=== PATIENT | female | born 1980 | race Caucasian/White ===

== ENCOUNTER 2018-06-21 19:08 | Emergency (ER) | payer MEDICARE ==
[2018-06-21] MEDS ORDERED: Zofran 4 MG/2 ML VIAL (20:03)
[2018-06-21] MEDS ORDERED: Pepcid 20 MG VIAL IV (20:03)
[2018-06-21] MEDS ORDERED: Sodium Chloride 0.9% 1000 ML 1,000 ML (20:04)
[2018-06-21] MEDS ORDERED: MORPHINE SULFATE 4 MG INJ (20:04)
[2018-06-21] MEDS: Sodium Chloride 0.9% 1000 ML 1,000 ML IV ×2 (20:11→20:50)
[2018-06-21] MEDS: Pepcid 20 MG VIAL IV ×2 (20:12→20:50)
[2018-06-21] MEDS: Zofran 4 MG/2 ML VIAL IV ×2 (20:12→20:50)
[2018-06-21 20:14] LABS: BASOPHIL % 0.5 % (0.0-0.4); Basophil (Absolute #) 0.05 (0-0.4); Eosinophil % 4.7 % (0.00-5.0); Eosinophil (Absolute #) 0.44 (0-0.5); Granulocytes % 51.4 % (36.0-66.0); Hematocrit 43.9 % (35-47); Hemoglobin 14.1 gm/dl (12.0-16.0); Lymphocyte (Absolute #) 3.43 (1.0-4.6); Lymphocytes % 36.6 % (24.0-44.0); Mean Cell Volume 86.4 fl (78-100); Mean Corpuscular Hemoglobin 27.8 pg (26-32); Mean Corpuscular Hgb Concent. 32.1 g/dl (32-36); Mean Platelet Volume 9.5 fl (6-9.5); Monocyte (Absolute #) 0.64 (0.0-1.3); Monocytes % 6.8 % (0.0-12.0); Platelet Count 237 K/mm3 (150-450); Red Blood Count 5.08 M/mm3 (4.1-5.4); Red Cell Distribution Width 15.9 % (11.5-14.0); White Blood Count 9.4 K/mm3 (4.0-10.5)
[2018-06-21] MEDS: MORPHINE SULFATE 4 MG INJ IV (20:17)
[2018-06-21] MEDS ORDERED: TORAdol 30 mg Injection (20:18)
[2018-06-21 20:19] LABS: ADD MANUAL DIFF? NO (NO)
[2018-06-21 20:33] LABS: Lactic Acid 1.3 (0.4-2.0)
[2018-06-21 20:37] LABS: HCG QUALITATIVE,SERUM NEGATIVE (Negative)
[2018-06-21] MEDS ORDERED: Nubain 10 MG/ML (20:37)
[2018-06-21 20:44] LABS: ALBUMIN 4.5 g/dL (3.5-5.0); ALKALINE PHOSPHATASE 62 U/L (38-126); AMYLASE 42 U/L (30-110); ANION GAP 15.3 MEQ/L (5-15); BLOOD UREA NITROGEN 10 mg/dL (7-17); CHLORIDE 108 mmol/L (98-107); Calcium 9.4 mg/dL (8.4-10.2); Carbon Dioxide 20 mmol/L (22-30); Creatinine 1 0.95 mg/dL (0.52-1.04); EST GLOMERULAR FILTRATION RATE > 60.0 ML/MIN; Glucose 93 mg/dL (74-106); LIPASE 146 U/L (23-300); Potassium 4.1 mmol/L (3.5-5.1); SGOT/AST 24 U/L (14-36); SGPT/ALT 15 U/L (0-35); SODIUM 140 mmol/L (137-145); Total Protein 6.9 g/dL (6.3-8.2)
[2018-06-21] MEDS: Nubain 10 MG/ML IV (20:49)
[2018-06-21] MEDS: TORAdol 30 mg Injection IV (21:03)
[2018-06-21 21:49] LABS: Appearance SLIGHTLY CLOUDY (CLEAR); Bacteria RARE /HPF (NEGATIVE); Bilirubin NEGATIVE (NEGATIVE); Blood LARGE Ery/ul (0-5); Epithelial Cells FEW /HPF (FEW); Glucose NEGATIVE (NEGATIVE); Ketones NEGATIVE (NEGATIVE); Leukocyte Esterase TRACE (NEGATIVE); Mucus SLIGHT /HPF (NEGATIVE); Nitrite NEGATIVE (NEGATIVE); Protein,Urine Dip NEGATIVE (Negative); Specific Gravity 1.017 (1.005-1.025); Urobilinogen NEGATIVE mg/dL (0-1)
[2018-06-21 21:50] LABS: ADD URINE CULTURE? YES (NO); RBC >101 /HPF (0-2)
[2018-06-21] MEDS ORDERED: ROCEPHIN 1 Gm-D5w 50 ml Bag** 1 G/50 ML IVPB IV (22:22)
[2018-06-21] MEDS: ROCEPHIN 1 Gm-D5w 50 ml Bag** 1 G/50 ML IVPB IV (22:27)
== END 2018-06-21 23:09 | disposition home or self-care (01) ==
LOC: ED 19:08
CPT/HCPCS: 36000; 36415; 74176; 80053; 81001; 81025; 82150; 83605; 83690; 85025; 87086; 96374; 96375; J0696; J1885; J2270; J2300; J2405

== ENCOUNTER 2019-09-28 11:56 | Day surgery (SDC) | payer MEDICARE ==
--- NOTE | 2019-09-28 07:56 | HP ---
DATE OF SURGERY: 09/28/2019 HISTORY OF PRESENT ILLNESS: The patient is a 39 year-old with increased aches and pains, prior history of hernia repair by Dr. Mata in the past. She had a bulge in mid-abdomen, according to the patient. Ultrasound was negative for any stones. Picking up 40 pounds. She had incarcerated in the fat ventral hernia on a CT scan in the summer apparently. PAST MEDICAL HISTORY: She had incarcerated epigastric hernia repair with mesh by Dr. Mata in the past. She had some diabetes, hypothyroidism, anxiety, depression and reflux. PAST SURGICAL HISTORY: Laparoscopic appendectomy in the past. MEDICATIONS: She has been on dicyclomine, esomeprazole, metoclopramide, Tradjenta, vitamin D2, cetirizine, levothyroxine for some hypothyroidism, Alprazolam, escitalopram. ALLERGIES: MORPHINE. FAMILY HISTORY: Negative in regards to this problem. SOCIAL HISTORY: No alcohol abuse. She is not smoking currently. REVIEW OF SYSTEMS: Fourteen systems reviewed per admission assessment. No chest pain or palpitations. Otherwise pertinent for as noted above. PHYSICAL EXAMINATION: GENERAL: No acute distress. HEENT: Sclerae nonicteric. NECK: No JVD. CHEST: Equal excursion, nonlabored breathing. CVS: Regular rate and rhythm. ABDOMEN: Soft. Difficult to examine secondary to obesity. The CT scan showed some fat in ventral hernia likely recurrence around her prior repair. No peritoneal signs. EXTREMITIES: No edema. NEURO: Alert, oriented, moving extremities symmetrically. IMPRESSION: Incarcerated recurrent ventral hernia likely benefit from repair. Discussed options of laparoscopic versus open repair. I feel with her weight likely benefit from laparoscopic assisted repair possible open with mesh. Risks and benefits explained in detail not limited to bleeding or infection, risk of trocar injury or hernia, small risk of bowel, bladder, blood vessel injury, small risk of adhesion, scar formation or obstruction. 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 General risk of anesthesia, deep venous thrombosis, pulmonary embolism, pneumonia but not limited to.
[~2019-09-28 11:56] MED LIST: Lactated Ringers 1,000 ML IV ONE; Sensorcaine 0.25% 10 ML ONE
[2019-09-28] MEDS ORDERED: Versed 2 MG/2 ML Injection ONE (12:26)
[2019-09-28] MEDS ORDERED: CEFAZOLIN 2 GM-D5W BAG** 2 GM/50 ML ML IV ONE (12:30)
[2019-09-28] MEDS ORDERED: Lactated Ringers 1,000 ML IV ONE (12:31)
[2019-09-28] MEDS ORDERED: CLINDAMYCIN-D5W 900 MG/50 ML*** 900 MG/50 ML BAG IV ONE (12:44)
[2019-09-28] MEDS: Lactated Ringers 1,000 ML IV SCH (12:46)
[2019-09-28] MEDS: CLINDAMYCIN-D5W 900 MG/50 ML*** 900 MG/50 ML BAG IV SCH (12:49)
[2019-09-28] MEDS ORDERED: DIPRIVAN 200 MG/20 ML IV ONE (14:08)
[2019-09-28] MEDS ORDERED: Zemuron 100 MG/10 ML ONE (14:09)
[2019-09-28] MEDS ORDERED: SUBLIMAZE 250 MCG/5 ML ONE (14:09)
[2019-09-28] MEDS ORDERED: BRIDION 200MG/2ML IV ONE (14:10)
[2019-09-28] MEDS ORDERED: Marcaine 0.5%/Epinephrine 10 ML ONE (17:23)
[2019-09-28] MEDS ORDERED: MARCAINE 0.5%-EPI 1:200,000 VL IJ ONE (17:23)
[2019-09-28] MEDS ORDERED: TORAdol 30 mg Injection ONE (18:15)
[2019-09-28] MEDS ORDERED: DEMEROL 50 MG ONE (18:31)
[2019-09-28 19:12] VITALS: O2SAT 96
[2019-09-28 19:38] VITALS: BP 116/59; PULSE 81
[2019-09-28 20:12] LABS: Appearance CLOUDY (CLEAR); Bacteria RARE /HPF (NEGATIVE); Bilirubin NEGATIVE (NEGATIVE); Blood NEGATIVE Ery/ul (0-5); Epithelial Cells MODERATE /HPF (FEW); Glucose NEGATIVE (NEGATIVE); Ketones NEGATIVE (NEGATIVE); Leukocyte Esterase NEGATIVE (NEGATIVE); Mucus MODERATE /HPF (NEGATIVE); Nitrite NEGATIVE (NEGATIVE); Protein,Urine Dip 30 (Negative); Specific Gravity 1.023 (1.005-1.025); Urobilinogen NEGATIVE mg/dL (0-1)
--- NOTE | 2019-09-29 11:55 | OP ---
SURGERY DATE/TIME: 09/28/2019 1540 PREOPERATIVE DIAGNOSIS: Incarcerated recurrent ventral hernia. POSTOPERATIVE DIAGNOSIS: Two separate recurrent incarcerated ventral hernias repaired laparoscopically with two separate pieces of mesh. PROCEDURES: 1) Laparoscopic repair incarcerated ventral hernia x2. 2) Two separate pieces of mesh repairing separate locations. SURGEON: Dr. Joshua Silver. APPLIANCE SERVICER: Laquita Coronado, Medical Student III. ANESTHESIA: General. ESTIMATED BLOOD LOSS: Minimal. INDICATIONS: As noted above. Risks and benefits explained in detail and not limited to and consent obtained. DESCRIPTION OF PROCEDURE AND FINDINGS: The patient is taken to the operating room. General anesthesia induced. Abdomen is prepped and draped in usual sterile fashion. After official time out and no disagreement with planned procedure, a transverse incision made below the umbilical area. Fascia grasped upward. Given her obesity unable to easily pull up the fascia. It was necessary to slightly enlarge the incision. Fascia grasped with Anaid and pulled upwards. Veress needle inserted and tested with saline. Pneumoperitoneum accomplished opening pressure 0 to 15. A 5 mm bladeless port and camera inserted without difficulty in the left upper quadrant along with a 5 mm right mid abdomen port, another 5 mm left mid abdomen port and another 5 mm left lower quadrant port. The patient had extensive omentum from prior repair, this was carefully taken down. The main hernia that she was complaining about was inferior to her old mesh that is still well incorporated. The fat incarcerated in the omentum and preperitoneal fat, this is carefully reduced down allowing the hernia defect to be visualized superiorly. When the omentum had been taken down off the top edges of the mesh, there was another area that was definitely separate site of recurrence, this was much smaller. It was felt that this would benefit from repair with a separate smaller piece of mesh well away from her symptomatic one inferiorly. The right side of the mesh it is a little bit bowed out. It was felt that this should be secured with some 3-0 Ethibond, carefully placed through a stab wound and securing it transfascially reflattening the mesh overlapping where some omentum had been incarcerated up underneath. At this point two separate areas of mesh felt they needed to be repaired independently. It was felt she would have much severe pain if her old mesh is ripped out and a huge piece of mesh placed. It was felt given the size of the defect, size [address] is most appropriate for the caudal area repairing hernia and a separate 4.3 cm smaller defect superiorly as the remainder of the old mesh was well incorporated. Transfascial sutures placed with some 0 Vicryl in the superior defect through stab wound. Inferior small transverse incision made with two - #1 PDS placed transfascially to bring her fascial defect back towards the midline where it belongs. Before tying these, the 11/12 port was placed allowing the two pieces of mesh to be carefully inserted. The first piece of mesh size [address], four quadrant straps had been cut four quadrant 0 Ethibond transfascial sutures carefully placed in four quadrants with 0 Vicryl placed in the middle of the mesh. The smaller 4.3 cm Ventralex the straps cut off. 0 Vicryl placed in the center portion of the mesh. At this point the mesh was carefully wet and gently rolled and easily dropped down through the 12 port. At this point both superior separate hernia defects closed with #1 Vicryl closing the fascial defect back towards the midline where it belongs. The inferior one was closed with #1 PDS. Once these fascial defects brought back to the midline, suture passer then used to pull the center 0 Vicryl mesh up to the center of the defect. The four quadrant 0 Ethibonds were carefully pulled up through four separate stab wounds. The larger more caudal mesh over the caudal area of hernia, this is carefully secured transfascially four quadrants with a CapSure tacker then used to tack 1 cm or so around the edges. The same CapSure tacker was used to carefully tack the more cephalad 4.3 cm piece of mesh separate hernia carefully tacking in flat manner 1 cm apart. Once this is accomplished the CapSure tacker used to place centrally to further reduce the risk of seromal formation keeping the mesh nice and flat. The two pieces of mesh are nice and flat. The edge of the old mesh had been tacked with SorbaFix tacker as well. The mesh laid nice and flat with good overlap in all directions. It was felt this was the best option to minimize risk of recurrence as well as minimize risk of chronic aches and pains perioperatively. At this point pneumoperitoneum decompressed. The skin incisions are closed with the large one where the 12 port had been closed with 3-0 Vicryl and 4-0 Vicryl, the remainder of skin incision closed with 4-0 Vicryl. The stab wounds were closed with Steri-Strips. 0.25% Marcaine local had been injected along the skin incision. Anesthesia proceeded with tap blocks at the end of the procedure. Steri-Strips and sterile dressing applied. She was given an abdominal binder. She will be transferred to recovery in stable condition. There were no immediate complications. Findings discussed with the family out in the waiting area including the importance of termite treater helper weight loss deeply reduces recurrence. Avoid heavy lifting for six to eight weeks. Avoid pushing, pulling, straining, heavy lifting.
== END 2019-09-28 19:41 | disposition home or self-care (01) ==
LOC: SDC 11:56
PROVIDERS: ATTEND Surgery
DX: K43.0 Incisional hernia with obstruction, without gangrene (principal); E11.9 Type 2 diabetes mellitus without complications; E03.9 Hypothyroidism, unspecified; Z79.899 Other long term (current) drug therapy
CPT/HCPCS: 49653; 64488; 76937; 76942; 81001; 82962; 84703; 87086; C1781; J0690; J1885; J2175; J2250; J2704; J3010; L0625

== ENCOUNTER 2023-02-08 00:14 | Emergency (ER) | payer MEDICARE ==
[2023-02-08] MEDS ORDERED: TORAdol 30 mg Injection IV ONE (00:20)
[2023-02-08] MEDS ORDERED: TORAdol 30 mg Injection ONE (00:34)
[2023-02-08 00:36] LABS: Absolute Neutrophil Ct (ANC) 4.39 x10^3/uL (1.4-6.9); BASOPHIL % 0.7 % (0.0-0.4); Basophil (Absolute #) 0.06 x10^3/uL (0-0.4); Eosinophil % 4.7 % (0.00-5.0); Eosinophil (Absolute #) 0.42 x10^3/uL (0-0.5); Hematocrit 39.8 % (35-47); Hemoglobin 12.2 g/dL (12.0-16.0); IMMATURE GRAN # 0.02 x10^3u/L (0.00-0.03); IMMATURE GRAN % 0.2 % (0.00-0.4); Lymphocyte (Absolute #) 3.36 x10^3/uL (1.0-4.6); Lymphocytes % 37.6 % (24.0-44.0); Mean Corpuscular Hemoglobin 29.1 pg (26-32); Mean Corpuscular Hgb Concent. 30.7 g/dL (32-36); Mean Platelet Volume 9.7 fL (7.5-11.0); Monocyte (Absolute #) 0.68 x10^3/uL (0.0-1.3); Monocytes % 7.6 % (0.0-12.0); Neutrophil % 49.2 % (36.0-66.0); Platelet Count 221 x10^3/uL (150-450); Red Blood Count 4.19 x10^6/uL (4.1-5.4); Red Cell Distribution Width 14.2 % (11.5-14.0); White Blood Count 8.9 x10^3/uL (4.0-10.5)
[2023-02-08 00:49] LABS: ALBUMIN 3.8 g/dL (3.5-5.0); ALKALINE PHOSPHATASE 61 U/L (38-126); ANION GAP 10.5 MEQ/L (5-15); BLOOD UREA NITROGEN 14 mg/dL (7-17); CHLORIDE 106 mmol/L (98-107); Carbon Dioxide 26 mmol/L (22-30); Creatinine 1 0.89 mg/dL (0.52-1.04); EST GLOMERULAR FILTRATION RATE > 60.0 ML/MIN; Glucose 98 mg/dL (74-106); LIPASE 97 U/L (23-300); Potassium 3.7 mmol/L (3.5-5.1); SGOT/AST 26 U/L (14-36); SGPT/ALT 19 U/L (0-35); SODIUM 139 mmol/L (137-145); Total Protein 6.5 g/dL (6.3-8.2)
[2023-02-08 00:50] LABS: Appearance Clear (Clear); Bacteria None Seen /HPF (None Seen); Bilirubin Negative (Negative); Blood Negative (Negative); Epithelial Cells Rare /HPF (None Seen); Glucose, Urine Negative (Negative); Hyaline Casts NONE SEEN /LPF (0-2); Ketones Negative (Negative); Leukocyte Esterase Small (Negative); Nitrite Negative (Negative); Protein,Urine Dip Negative (Negative); RBC 0-2 /HPF (0-5)
[2023-02-08 00:52] LABS: ADD URINE CULTURE? NO (NO)
--- NOTE | 2023-02-08 01:52 | XRAY ---
CLINICAL HISTORY:Left upper abdominal pain; COMPARISON:07/15/2019; TECHNIQUES:CT scan of the abdomen and pelvis was performed without IV contrast. Coronal and sagittal reconstructive images were also obtained; FINDINGS: Abdomen:. The liver is of average size. No focal or diffuse parenchymal abnormality. The portal vein, intrahepatic biliary radicals and the bile ducts are normal. The spleen shows stable 3 mm rounded calcified granuloma. The pancreas and adrenal glands are unremarkable. The kidneys are unremarkable. They are normal in size and shape. No calculi or hydronephrosis. The gallbladder is partially distended. There is no evidence of wall thickening/ pericholecystic collection. The ascending colon, the transverse colon, and the descending colon visualized small bowel loops are unremarkable. There is no evidence of significant enlargement of the mesenteric or retroperitoneal lymph nodes. There is a hernia mesh at the umbilical level without recurrent hernia. Pelvis:. The urinary bladder is unremarkable. The rectosigmoid colon is unremarkable. The uterus is surgically removed in comparison to the previous study. No evidence of pelvic lymphadenopathy. No definite bony abnormalities could be depicted. Sections of the lower thorax show a 5 mm stable calcified granuloma in the posterior basal segment of the left lower lobe. IMPRESSION: No significant acute abnormality was detected in the plain CT abdomen in the present study. Umbilical hernia mesh. Stable old calcified granuloma in the spleen and left lower lobe of the lung. No significant interval changes were seen as compared to the previous study dated 07/15/2019 except for hysterectomy and hernia mesh. Electronically Signed by: Juan Pablo Hutchinson MD. (02/08/2023 00:37:32 ASSISTANT AT SURGERY;)
--- NOTE | 2023-02-08 02:40 | ERPHSYRPT ---
- History of Present Illness Time Seen by Provider: 02/08/23 00:20 Historian: patient Exam Limitations: no limitations Patient Subjective Stated Complaint: pt states her belly began to hurt an hour after eating Triage Nursing Assessment: pt came into the er via; pt is axo x3; c/o abd pain; pt denies N/V/D; pt states last BM was just prior to coming in; active bowel sounds in all quads; tenderness present to LUQ; skin PDW; vitasl wnl; no respira tory distress present Physician History: Patient is a 42-year-old female presents to our ED with left upper quadrant pain that started after eating her meal. Patient arrived to our ED via EMS. Pain described as an ache that is localized. No radiation. No specific worsening improving factors. Patient denies history of the same. No trauma. No fever. No nausea vomiting or diarrhea. Patient otherwise feels well. Patient voices no other complaints or concerns at this time. Portions of this note were created with voice recognition technology. There may be grammatical, spelling, punctuation or sound alike errors Timing/Duration: today Activities at Onset: none Abdominal Pain Onset Location: LUQ Pain Radiation: no radiation Severity of Pain-Max: moderate Severity of Pain-Current: mild Modifying Factors: Improves With: nothing Associated Symptoms: denies symptoms Previous symptoms: no prior history Allergies/Adverse Reactions: penicillin G Allergy (Mild, Verified 02/08/23 00:22) Itching morphine Adverse Reaction (Mild, Verified 02/08/23 00:22) Itching Home Medications: Esomeprazole Magnesium [Nexium] 40 mg PO DAILY 07/06/14 [History] Levothyroxine Sodium 75 Mcg [Synthroid 75 Mcg] 200 mcg PO DAILY 07/06/14 [History] ALPRAZolam 0.25 MG [xanAX 0.25 MG] 0.25 mg PO BIDPRN PRN 09/16/19 [History] Cetirizine HCl [Zyrtec] 10 mg PO DAILY 09/16/19 [History] Dicyclomine HCl 10 mg PO TID 09/16/19 [History] Ergocalciferol (Vitamin D2) [Vitamin D2] 50,000 unit PO Q7D 09/16/19 [History] Escitalopram Oxalate [Lexapro] 10 mg PO DAILY 09/16/19 [History] Linagliptin [Tradjenta] 5 mg PO DAILY 09/16/19 [History] Metoclopramide HCl [Reglan] 10 mg PO ACHS 09/16/19 [History] Hx Tetanus, Diphtheria Vaccination/Date Given: Yes Hx Influenza Vaccination/Date Given: No Hx Pneumococcal Vaccination/Date Given: No Travel Risk - International Travel Have you traveled outside of the country in past 3 weeks: No - Coronavirus Screening Are you exhibiting any of the following symptoms?: No Close contact with a COVID-19 positive Pt in past 14-21 Days: No - Vaccine Status Have you recieved a Covid-19 vaccination: No - Review of Systems Constitutional: No Symptoms, No Fever, No Chills Eyes: No Symptoms Ears, Nose, & Throat: No Symptoms Respiratory: No Symptoms, No Cough, No Dyspnea Cardiac: No Symptoms, No Chest Pain, No Edema, No Syncope Abdominal/Gastrointestinal: No Symptoms, No Abdominal Pain, No Nausea, No Vomiting, No Diarrhea Genitourinary Symptoms: No Symptoms, No Dysuria Musculoskeletal: No Symptoms, No Back Pain, No Neck Pain Skin: No Symptoms, No Rash Neurological: No Symptoms, No Dizziness, No Focal Weakness, No Sensory Changes Psychological: No Symptoms Endocrine: No Symptoms Hematologic/Lymphatic: No Symptoms Immunological/Allergic: No Symptoms All Other Systems: Reviewed and Negative - Past Medical History Pertinent Past Medical History: Yes Neurological History: No Pertinent History ENT History: No Pertinent History Cardiac History: No Pertinent History Respiratory History: No Pertinent History Endocrine Medical History: Diabetes Type II, Hypothyroidism Musculoskeletal History: No Pertinent History GI Medical History: GERD, Hernia History: No Pertinent History Psycho-Social History: No Pertinent History Female Reproductive Disorders: No Pertinent History Other Medical History: 2009 blood clots in lungs, no longer on blood thinners - Past Surgical History Past Surgical History: Yes Neuro Surgical History: No Pertinent History Cardiac: No Pertinent History Respiratory: No Pertinent History Gastrointestinal: Cholecystectomy, Hernia Repair Genitourinary: No Pertinent History Musculoskeletal: No Pertinent History Female Surgical History: Section, Tubal Ligation, Other Other Surgical History: breast biopsy apr 2014 - Social History Smoking Status: Never smoker Exposure to second hand smoke: No Drug Use: none Patient Lives Alone: No Significant Family History: no pertinent family hx - Female History Hx Now: No - Nursing Vital Signs Nursing Vital Signs: Initial Vital Signs Temperature 98.6 F 02/08/23 00:16 Pulse Rate 83 02/08/23 00:16 Respiratory Rate 14 02/08/23 00:16 Blood Pressure 135/87 02/08/23 00:16 O2 Sat by Pulse Oximetry 99 02/08/23 00:16 Pain Scale Pain Intensity 3 - Physical Exam General Appearance: no apparent distress, alert Eye Exam: PERRL/EOMI, eyes nml inspection Ears, Nose, Throat Exam: normal ENT inspection, pharynx normal, moist mucous membranes Neck Exam: normal inspection, non-tender, supple, full range of motion Respiratory Exam: normal breath sounds, lungs clear, airway intact, No respiratory distress Cardiovascular Exam: regular rate/rhythm, normal heart sounds, normal peripheral pulses Gastrointestinal/Abdomen Exam: soft, No tenderness, No mass Pelvic Exam: not done Rectal Exam: deferred Back Exam: normal inspection, normal range of motion, No CVA tenderness, No vertebral tenderness Extremity Exam: normal inspection, normal range of motion, pelvis stable Neurologic Exam: alert, oriented x 3, cooperative, normal mood/affect, nml cerebellar function, sensation nml, No motor deficits Skin Exam: normal color, warm, dry Lymphatic Exam: No adenopathy SpO2 Interpretation: normal SpO2: 100 O2 Delivery: Room Air - Course Nursing assessment & vital signs reviewed: Yes - CT Exams Abdomen/Pelvis CT Interpretation: Tele-radiologist Report Ordered Tests: Active Orders 24 hr Category Date Time Status ABDOMEN AND PELVIS W/0 CONTRAS [CT] Stat Exams 02/08/23 00:40 Completed CBC W DIFF Stat Lab 02/08/23 00:34 Completed CMP Stat Lab 02/08/23 00:34 Completed LIPASE Stat Lab 02/08/23 00:34 Completed TROPONIN Q4H Lab 02/08/23 00:34 Completed TROPONIN Q4H Lab 02/08/23 04:30 Ordered TROPONIN Q4H Lab 02/08/23 08:30 Ordered UA W/RFX UR CULTURE Stat Lab 02/08/23 00:38 Completed Medication Summary Discontinued Medications Generic Name Dose Route Start Last Admin Trade Name Freq PRN Reason Stop Dose Admin Ketorolac Tromethamine 30 mg 02/08/23 00:20 02/08/23 00:35 Ketorolac Tromethamine 30 Mg/Ml Inj IV 02/08/23 00:21 30 mg STAT ONE Administration Ketorolac Tromethamine Confirm 02/08/23 00:34 Ketorolac Tromethamine 30 Mg/Ml Inj Administered 02/08/23 00:35 Dose 30 mg .ROUTE .STK-MED ONE Lab/Rad Data: Laboratory Result Diagrams 02/08/23 00:34 02/08/23 00:34 Laboratory Results 02/08/23 02/08/23 02/08/23 Range/Units 00:38 00:34 00:34 WBC (4.0-10.5) x10^3/uL RBC (4.1-5.4) x10^6/uL Hgb (12.0-16.0) g/dL Hct (35-47) % MCV (78-100) fL MCH (26-32) pg MCHC (32-36) g/dL RDW (11.5-14.0) % Plt Count (150-450) x10^3/uL MPV (7.5-11.0) fL Gran % (36.0-66.0) % Immature Gran % (Auto) (0.00-0.4) % Nucleat RBC Rel Count (0.00-0.1) % Eos # (Auto) (0-0.5) x10^3/uL Immature Gran # (Auto) (0.00-0.03) x10^3u/L Absolute Lymphs (auto) (1.0-4.6) x10^3/uL Absolute Monos (auto) (0.0-1.3) x10^3/uL Absolute Nucleated RBC (0.00-0.01) x10^3u/L Lymphocytes % (24.0-44.0) % Monocytes % (0.0-12.0) % Eosinophils % (0.00-5.0) % Basophils % (0.0-0.4) % Absolute Granulocytes (1.4-6.9) x10^3/uL Basophils # (0-0.4) x10^3/uL Sodium 139 (137-145) mmol/L Potassium 3.7 (3.5-5.1) mmol/L Chloride 106 (98-107) mmol/L Carbon Dioxide 26 (22-30) mmol/L Anion Gap 10.5 (5-15) MEQ/L BUN 14 (7-17) mg/dL Creatinine 0.89 (0.52-1.04) mg/dL Estimated GFR > 60.0 ML/MIN Glucose 98 (74-106) mg/dL Calcium 8.0 L (8.4-10.2) mg/dL Total Bilirubin 0.30 (0.2-1.3) mg/dL AST 26 (14-36) U/L ALT 19 (0-35) U/L Alkaline Phosphatase 61 (38-126) U/L Troponin I < 0.012 (0.000-0.034) ng/mL Serum Total Protein 6.5 (6.3-8.2) g/dL Albumin 3.8 (3.5-5.0) g/dL Lipase 97 (23-300) U/L Urine Color Yellow (Yellow) Urine Appearance Clear (Clear) Urine pH 7.0 (4.6-8.0) Ur Specific [place] 1.020 (1.005-1.030) Urine Protein Negative (Negative) Urine Glucose (UA) Negative (Negative) mg/dL Urine Ketones Negative (Negative) Urine Blood Negative (Negative) Urine Nitrite Negative (Negative) Urine Bilirubin Negative (Negative) Urine Urobilinogen 1.0 A (0.2) mg/dL Ur Leukocyte Esterase Small A (Negative) U Hyaline Cast (Auto) NONE SEEN (0-2) /LPF Urine Microscopic RBC 0-2 (0-5) /HPF Urine Microscopic WBC 6-10 A (0-5) /HPF Ur Epithelial Cells Rare (None Seen) /HPF Urine Bacteria None Seen (None Seen) /HPF Urine Culture Reflexed NO (NO) 02/08/23 Range/Units 00:34 WBC 8.9 (4.0-10.5) x10^3/uL RBC 4.19 (4.1-5.4) x10^6/uL Hgb 12.2 (12.0-16.0) g/dL Hct 39.8 (35-47) % MCV 95.0 (78-100) fL MCH 29.1 (26-32) pg MCHC 30.7 L (32-36) g/dL RDW 14.2 H (11.5-14.0) % Plt Count 221 (150-450) x10^3/uL MPV 9.7 (7.5-11.0) fL Gran % 49.2 (36.0-66.0) % Immature Gran % (Auto) 0.2 (0.00-0.4) % Nucleat RBC Rel Count 0.0 (0.00-0.1) % Eos # (Auto) 0.42 (0-0.5) x10^3/uL Immature Gran # (Auto) 0.02 (0.00-0.03) x10^3u/L Absolute Lymphs (auto) 3.36 (1.0-4.6) x10^3/uL Absolute Monos (auto) 0.68 (0.0-1.3) x10^3/uL Absolute Nucleated RBC 0.00 (0.00-0.01) x10^3u/L Lymphocytes % 37.6 (24.0-44.0) % Monocytes % 7.6 (0.0-12.0) % Eosinophils % 4.7 (0.00-5.0) % Basophils % 0.7 (0.0-0.4) % Absolute Granulocytes 4.39 (1.4-6.9) x10^3/uL Basophils # 0.06 (0-0.4) x10^3/uL Sodium (137-145) mmol/L Potassium (3.5-5.1) mmol/L Chloride (98-107) mmol/L Carbon Dioxide (22-30) mmol/L Anion Gap (5-15) MEQ/L BUN (7-17) mg/dL Creatinine (0.52-1.04) mg/dL Estimated GFR ML/MIN Glucose (74-106) mg/dL Calcium (8.4-10.2) mg/dL Total Bilirubin (0.2-1.3) mg/dL AST (14-36) U/L ALT (0-35) U/L Alkaline Phosphatase (38-126) U/L Troponin I (0.000-0.034) ng/mL Serum Total Protein (6.3-8.2) g/dL Albumin (3.5-5.0) g/dL Lipase (23-300) U/L Urine Color (Yellow) Urine Appearance (Clear) Urine pH (4.6-8.0) Ur Specific [place] (1.005-1.030) Urine Protein (Negative) Urine Glucose (UA) (Negative) mg/dL Urine Ketones (Negative) Urine Blood (Negative) Urine Nitrite (Negative) Urine Bilirubin (Negative) Urine Urobilinogen (0.2) mg/dL Ur Leukocyte Esterase (Negative) U Hyaline Cast (Auto) (0-2) /LPF Urine Microscopic RBC (0-5) /HPF Urine Microscopic WBC (0-5) /HPF Ur Epithelial Cells (None Seen) /HPF Urine Bacteria (None Seen) /HPF Urine Culture Reflexed (NO) - Progress Progress: improved Progress Note: Patient is a 42-year-old female presents to our ED via EMS for evaluation of abdominal pain. Pain started approximate 1 hour after her evening meal. Physical exam essentially nonremarkable. Testing includes CBC CMP lipase troponin UA. UA reveals urinary tract infection with leukocyte esterase and pyuria. Laboratory studies otherwise essentially nonremarkable. Patient r eceived Toradol for pain control. Pain improved. Patient voices no other complaints or concerns at this time. Portions of this note were created with voice recognition technology. There may be grammatical, spelling, punctuation or sound alike errors Complexity of problem addressed is moderate. No critical care time Complex of data reviewed and analyzed is moderate. Test ordered test reviewed and analyzed. Clinical correlation made between physical exam findings and laboratory and imaging studies. Risk complication and or risk morbidity/mortality of patient management is moderate. Patient received IV Toradol for pain management. Patient has a urinary tract infection. A prescription for Macrobid will be forwarded to patient's pharmacy. Time to discharge patient approximately 15 minutes. Vital stable. Plan of care established via shared decision making. No social determinants of health impede follow-up. Portions of this note were created with voice recognition technology. There may be grammatical, spelling, punctuation or sound alike errors 02/08/23 02:43 Counseled pt/family regarding: lab results, diagnosis, need for follow-up, rad results - Departure Departure Disposition: Home Clinical Impression: Spleen granuloma, Lung granuloma Condition: Stable Critical Care Time: No Referrals: NASIR REECE [Primary Care Provider] - Follow up/PCP as directed Additional Instructions: Discharge/Care Plan BLAISE MATOS TED was seen on 02/08/23 in the Emergency Room. The patient was counseled regarding Diagnosis,Lab results, Imaging studies, need for follow up and when to return to the Emergency Room. Prescriptions given: Discharge Note I have spoken with the patient and/or caregivers. I have explained the patient's condition, diagnosis and treatment plan based on the information available to me at this time. I have answered the patient's and/or caregiver's questions and addressed any concerns. The patient and/or caregivers have as good understanding of the patient's diagnosis, condition and treatment plan as can be expected at this point. The vital signs have been stable. The patient's condition is stable and appropriate for discharge from the emergency department. The patient will pursue further outpatient evaluation with the primary care physician or other designated or consulting physician as outlined in the discharge instructions. The patient and/or caregivers are agreeable to this plan of care and follow-up instructions have been explained in detail. The patient and/or caregivers have received these instruction. The patient/and or caregivers are aware that any significant change in condition or worsening of symptoms shou ld prompt an immediate return to this or the closest emergency department or call 911. Prescriptions: Nitrofurantoin Macro 100 mg [Macrobid 100MG Capsule] 100 mg PO BID 7 Days #14 cap
[2023-02-08 02:58] VITALS: BP 117/79; PULSE 78; O2SAT 99
== END 2023-02-08 02:59 | disposition home or self-care (01) ==
LOC: ED 00:14
DX: J84.10 Pulmonary fibrosis, unspecified (principal); D73.89 Other diseases of spleen; R10.12 Left upper quadrant pain; E11.9 Type 2 diabetes mellitus without complications; Z79.899 Other long term (current) drug therapy; Z28.310 Unvaccinated for COVID-19
CPT/HCPCS: 36415; 74176; 80053; 81001; 83690; 84484; 85025; 96374; 99283; J1885

== ENCOUNTER 2023-09-29 23:00 | Emergency (ER) | payer MEDICARE ==
[2023-09-30 00:20] VITALS: TEMP 98.3
--- NOTE | 2023-09-30 01:03 | ERPHSYRPT ---
- History of Present Illness Time Seen by Provider: 09/30/23 00:30 Source: patient Patient Subjective Stated Complaint: medial left ankle and foot pain since rolling ankle on bleachers 09/28/23 at 1900 Triage Nursing Assessment: Pt's left pedal pulse and posterior tibial pulse present and WNL. Skin color WNL for race. ROM limited d/t pain. Denies numbness or tingling. Physician History: 43yo f presents w/ 1d left ankle pain. Pt states she stepped off of bleachers onto the ground and pronated the left ankle. Pt states she was initially able to walk on the ankle but now is having Allergies/Adverse Reactions: penicillin G Allergy (Mild, Verified 09/30/23 00:08) Itching morphine Adverse Reaction (Mild, Verified 09/30/23 00:08) Itching Home Medications: Esomeprazole Magnesium [Nexium] 40 mg PO DAILY 07/06/14 [History] Levothyroxine Sodium 75 Mcg [Synthroid 75 Mcg] 200 mcg PO DAILY 07/06/14 [History] ALPRAZolam 0.25 MG [xanAX 0.25 MG] 0.25 mg PO BIDPRN PRN 09/16/19 [ History] Cetirizine HCl [Zyrtec] 10 mg PO DAILY 09/16/19 [History] Dicyclomine HCl 10 mg PO TID 09/16/19 [History] Ergocalciferol (Vitamin D2) [Vitamin D2] 50,000 unit PO Q7D 09/16/19 [History] Escitalopram Oxalate [Lexapro] 10 mg PO DAILY 09/16/19 [History] Linagliptin [Tradjenta] 5 mg PO DAILY 09/16/19 [History] Metoclopramide HCl [Reglan] 10 mg PO ACHS 09/16/19 [History] Hx Tetanus, Diphtheria Vaccination/Date Given: Yes Hx Influenza Vaccination/Date Given: No Hx Pneumococcal Vaccination/Date Given: No Travel Risk - International Travel Have you traveled outside of the country in past 3 weeks: No - Coronavirus Screening Are you exhibiting any of the following symptoms?: No Close contact with a COVID-19 positive Pt in past 14-21 Days: No - Vaccine Status Have you recieved a Covid-19 vaccination: No - Past Medical History Pertinent Past Medical History: Yes Neurological History: No Pertinent History ENT History: No Pertinent History Cardiac History: No Pertinent History Respiratory History: Pulmonary Embolism Endocrine Medical History: Diabetes Type II, Hypothyroidism Musculoskeletal History: No Pertinent History GI Medical History: GERD, Hernia History: No Pertinent History Psycho-Social History: No Pertinent History Female Reproductive Disorders: No Pertinent History Other Medical History: . - Past Surgical History Past Surgical History: Yes Neuro Surgical History: No Pertinent History Cardiac: No Pertinent History Respiratory: No Pertinent History Gastrointestinal: Cholecystectomy, Hernia Repair Genitourinary: No Pertinent History Musculoskeletal: No Pertinent History Female Surgical History: Hysterectomy, Section, Tubal Ligation, Other Other Surgical History: breast biopsy apr 2014 - Social History Smoking Status: Never smoker Exposure to second hand smoke: No Drug Use: none Patient Lives Alone: No Significant Family History: no pertinent family hx - Female History Hx Now: No - Nursing Vital Signs Nursing Vital Signs: Initial Vital Signs Temperature 98.3 F 09/30/23 00:14 Pulse Rate 77 09/30/23 00:14 Respiratory Rate 16 09/30/23 00:14 Blood Pressure 117/82 09/30/23 00:14 O2 Sat by Pulse Oximetry 96 09/30/23 00:14 Pain Scale Pain Intensity 7 - Physical Exam General Appearance: no apparent distress Cardiovascular/Respiratory Exam: chest non-tender, normal breath sounds Ankle Exam: left ankle: limited range of motion (2/2 pain), pain, soft tissue tenderness, swelling Foot Exam: left foot: pain, soft tissue tenderness Mental Status Exam: alert, oriented x 3 SpO2 Interpretation: normal SpO2: 96 O2 Delivery: Room Air Ordered Tests: Active Orders 24 hr Category Date Time Status ANKLE (3 VIEWS) Stat Exams 09/30/23 00:30 Taken FOOT (MINIMUM 3 VIEWS) Stat Exams 09/30/23 00:30 Taken Medication Summary Discontinued Medications Generic Name Dose Route Start Last Admin Trade Name Freq PRN Reason Stop Dose Admin Ketorolac Tromethamine 30 mg 09/30/23 00:55 09/30/23 01:35 Ketorolac Tromethamine 30 Mg/Ml Inj IM 09/30/23 00:56 30 mg STAT ONE Administration Ketorolac Tromethamine Confirm 09/30/23 01:34 Ketorolac Tromethamine 30 Mg/Ml Inj Administered 09/30/23 01:35 Dose 30 mg .ROUTE .STK-MED ONE - Progress Progress: improved Progress Note: 09/30/23 02:30 pain improved significantly w/ toradol injection imaging of foot and ankle negative for acute fracture plan for dc home w/ jona wrap on ankle, given crutches for ambulation instructed to present to orthopedic walk in clinic in the AM can use tylenol for pain, ice and elevation for relief of swelling movement of the ankle as tolerated Counseled pt/family regarding: diagnosis, need for follow-up, rad results Medical Desision Making - Risk of complications Minimal Risk: Minimal risk of morbidity - Departure Departure Disposition: Home Clinical Impression: Left ankle sprain Qualifiers: Encounter type: initial encounter Involved ligament of ankle: unspecified ligament Qualified Code(s): S93.402A - Sprain of unspecified ligament of left ankle, initial encounter Condition: Stable Critical Care Time: No Referrals: NASIR REECE [Primary Care Provider] - Follow up/PCP as directed Additional Instructions: pain improved significantly w/ toradol injection imaging of foot and ankle negative for acute fracture plan for dc home w/ jona wrap on ankle, given crutches for ambulation instructed to present to orthopedic walk in clinic in the AM can use tylenol for pain, ice and elevation for relief of swelling movement of the ankle as tolerated
[2023-09-30] MEDS ORDERED: TORAdol 30 mg Injection ONE (01:34)
[2023-09-30] MEDS: TORAdol 30 mg Injection IM ONE (01:35)
[2023-09-30 01:53] VITALS: BP 128/82; PULSE 74; RESP 18
[2023-09-30 02:37] VITALS: O2SAT 96
--- NOTE | 2023-09-30 08:43 | XRAY ---
Indication: Pain following injury. Comparison: None 3 view left ankle demonstrates tiny plantar heel spur. No other bony, articular, or soft tissue abnormalities.
--- NOTE | 2023-09-30 08:45 | XRAY ---
Indication: Pain following injury. Comparison: None 3 nonweightbearing views left foot demonstrates tiny plantar heel spur. No other bony, articular, or soft tissue abnormalities.
== END 2023-09-30 03:17 | disposition home or self-care (01) ==
LOC: ED 23:00
DX: S93.402A Sprain of unspecified ligament of left ankle, initial encounter (principal); X50.0XXA Overexertion from strenuous movement or load, initial encounter; E11.9 Type 2 diabetes mellitus without complications; Z79.84 Long term (current) use of oral hypoglycemic drugs; Z79.899 Other long term (current) drug therapy; Z28.310 Unvaccinated for COVID-19
CPT/HCPCS: 73610; 73630; 96372; 99283; J1885

== ENCOUNTER 2024-01-12 21:56 | Emergency (ER) | payer MEDICARE ==
[2024-01-12 23:59] VITALS: TEMP 98.2
[2024-01-13 00:19] LABS: Absolute Neutrophil Ct (ANC) 3.46 x10^3/uL (1.56-6.13); BASOPHIL % 0.9 % (0.1-1.2); Basophil (Absolute #) 0.07 x10^3/uL (0.01-0.08); Eosinophil % 1.7 % (0.7-5.8); Eosinophil (Absolute #) 0.13 x10^3/uL (0.04-0.36); Hematocrit 41.7 % (34.1-44.9); Hemoglobin 13.4 g/dL (11.2-15.7); IMMATURE GRAN # 0.02 x10^3u/L (0.001-0.031); IMMATURE GRAN % 0.3 % (0.001-0.429); Mean Cell Volume 92.7 fL (79.4-94.8); Mean Corpuscular Hemoglobin 29.8 pg (25.6-32.2); Mean Corpuscular Hgb Concent. 32.1 g/dL (32.2-35.5); Mean Platelet Volume 10.3 fL (9.4-12.3); Monocyte (Absolute #) 0.54 x10^3/uL (0.24-0.86); Monocytes % 6.9 % (4.7-12.5); Neutrophil % 44.2 % (34.0-71.1); Platelet Count 203 x10^3/uL (182-369); Red Cell Distribution Width 14.8 % (11.7-14.4); White Blood Count 7.8 x10^3/uL (3.98-10.04)
[2024-01-13 01:02] LABS: ALBUMIN 4.7 g/dL (3.5-5.0); ANION GAP 11.7 MEQ/L (5-15); BILIRUBIN,TOTAL 0.7 mg/dL (0.2-1.3); Calcium 9.3 mg/dL (8.4-10.2); Creatinine 1 1.17 mg/dL (0.52-1.04); EST GLOMERULAR FILTRATION RATE 59.4 ML/MIN; Potassium 3.4 mmol/L (3.5-5.1); Total Protein 7.4 g/dL (6.3-8.2)
[2024-01-13] MEDS: Sodium Chloride 0.9% 1000 ML 1,000 ML IV STA (01:04)
[2024-01-13] MEDS ORDERED: Sodium Chloride 0.9% 1000 ML 1,000 ML ONE (01:04)
[2024-01-13] MEDS: MORPHINE SULFATE 2 MG INJ IV ONE (01:05)
[2024-01-13] MEDS: ROCEPHIN 1 GM / 100 ML NaCl 1 GM/100 ML IVPB IV ONE (01:11)
[2024-01-13 01:24] LABS: Appearance Clear (Clear); Bacteria None Seen /HPF (None Seen); Bilirubin Negative (Negative); Blood Negative (Negative); Epithelial Cells Rare /HPF (None Seen); Glucose, Urine Negative (Negative); Hyaline Casts NONE SEEN /LPF (0-2); Ketones Negative (Negative); Leukocyte Esterase Negative (Negative); Nitrite Negative (Negative); Ph 6.5 (4.6-8.0); Protein,Urine Dip Negative (Negative); RBC 0-2 /HPF (0-5); Specific Gravity 1.015 (1.005-1.030); Urobilinogen 0.2 mg/dL (0.2); WBC 0-2 /HPF (0-5)
[2024-01-13 01:32] LABS: ADD URINE CULTURE? NO (NO)
[2024-01-13 01:42] LABS: TSH, 3RD Generation 152.86 mIU/L (0.470-4.680)
[2024-01-13 01:50] LABS: INFLUENZA A NEGATIVE (NEGATIVE); INFLUENZA B NEGATIVE (NEGATIVE); RESPIRATORY SYNCTIAL VIRUS NEGATIVE (NEGATIVE); SARS-CoV-2 Xpert Express NEGATIVE (NEGATIVE)
--- NOTE | 2024-01-13 02:21 | ERPHSYRPT ---
- History of Present Illness Time Seen by Provider: 01/13/24 00:16 Source: patient Exam Limitations: no limitations Patient Subjective Stated Complaint: C/O not feeling well since around 2pm today. Patient with nonspecific symptoms. at bedside and states that patient fell asleep at their daughter's birthday libertarian today; not normal for patient. Denies pain or fever. Has some nausea but no vomiting or diarrhea. Triage Nursing Assessment: Patient ambulated back to ER without difficulties. She is alert and oriented. No SOB. Skin tone normal. NITHYA COLLAZO. Physician History: 43yo f presents for fatigue x 1 day. Pt states she started feeling fatigued while at a birthday libertarian earlier today, states her face looked flush and she reported she "wasnt feeling great." Pt was worried her blood sugar was low so she decided to eat some cake, BG was 160 on arrival. Pt denies any fevers, cough, sinus congestion, recent sick contacts, dysuria, hematuria, n/v/d. Pt does report some decreased PO intake today, states she feels dehydrated. Pt denies any recent falls or trauma. Timing/Duration: today Severity: mild Associated Symptoms: No nausea, No vomiting, No abdominal pain, No shortness of breath, No diaphoresis, No cough, No chills, No chest pain, No fever, No headaches Allergies/Adverse Reactions: penicillin G Allergy (Mild, Verified 01/12/24 23:51) Itching morphine Adverse Reaction (Mild, Verified 01/12/24 23:51) Itching Home Medications: Esomeprazole Magnesium [Nexium] 40 mg PO DAILY 07/06/14 [History] Levothyroxine Sodium 75 Mcg [Synthroid 75 Mcg] 200 mcg PO DAILY 07/06/14 [History] ALPRAZolam 0.25 MG [xanAX 0.25 MG] 0.25 mg PO BIDPRN PRN 09/16/19 [ History] Cetirizine HCl [Zyrtec] 10 mg PO DAILY 09/16/19 [History] Dicyclomine HCl 10 mg PO TID 09/16/19 [History] Ergocalciferol (Vitamin D2) [Vitamin D2] 50,000 unit PO Q7D 09/16/19 [History] Escitalopram Oxalate [Lexapro] 10 mg PO DAILY 09/16/19 [History] Linagliptin [Tradjenta] 5 mg PO DAILY 09/16/19 [History] Metoclopramide HCl [Reglan] 10 mg PO ACHS 09/16/19 [History] Hx Tetanus, Diphtheria Vaccination/Date Given: Yes Hx Influenza Vaccination/Date Given: Yes Hx Pneumococcal Vaccination/Date Given: No Immunizations Up to Date: Yes Travel Risk - International Travel Have you traveled outside of the country in past 3 weeks: No - Emerging Infectious Disease Are you exhibiting symptoms associated with any current EIDs: No - Review of Systems Constitutional: Fatigue, No Fever, No Chills Respiratory: No No Symptoms Cardiac: No No Symptoms Abdominal/Gastrointestinal: No No Symptoms Genitourinary Symptoms: No No Symptoms Musculoskeletal: No No Symptoms Neurological: No No Symptoms - Past Medical History Pertinent Past Medical History: Yes Neurological History: No Pertinent History ENT History: No Pertinent History Cardiac History: No Pertinent History Respiratory History: No Pertinent History Endocrine Medical History: Diabetes Type II, Hypothyroidism Musculoskeletal History: Other GI Medical History: GERD, Gallbladder Disease, Hernia History: No Pertinent History Psycho-Social History: No Pertinent History Female Reproductive Disorders: No Pertinent History Other Medical History: HX RIGHT KNEE ARTHROSCOPY AFTER A FALL "YEARS AGO" TO "CLEAN IT OUT" - Past Surgical History Past Surgical History: Yes Neuro Surgical History: No Pertinent History Cardiac: No Pertinent History Respiratory: No Pertinent History Gastrointestinal: Cholecystectomy, Hernia Repair Genitourinary: No Pertinent History Musculoskeletal: No Pertinent History Female Surgical History: Hysterectomy, Section, Tubal Ligation, Other Other Surgical History: breast biopsy apr 2014, right knee scope Significant Family History: no pertinent family hx - Female History Hx Last Menstrual Period: None Hx Now: No (tubal and hysterectomy) - Social History Smoking Status: Never smoker Exposure to second hand smoke: No Drug Use: none Patient Lives Alone: No - Social Determinants of Health Will the patient participate in the screening: Yes Do you worry about a steady place to live?: No Do you have any problems with any of the following?: No known problems In the past 12 months,have you had to go without utilities?: No Transportation Issues: No Has anyone in your support network made you feel unsafe?: No Have you or anyone in your house had to go without enough: No - Nursing Vital Signs Nursing Vital Signs: Initial Vital Signs Pulse Rate 82 01/12/24 23:49 Respiratory Rate 19 01/12/24 23:49 Blood Pressure 140/103 01/12/24 23:49 O2 Sat by Pulse Oximetry 98 01/12/24 23:49 Pain Scale Pain Intensity 0 - Physical Exam General Appearance: no apparent distress, alert Eye Exam: PERRL/EOMI Neck Exam: normal inspection, non-tender Respiratory Exam: normal breath sounds, lungs clear, airway intact, No chest tenderness, No respiratory distress Cardiovascular Exam: regular rate/rhythm, normal heart sounds, No edema Gastrointestinal/Abdomen Exam: soft, No tenderness, No distention Extremity Exam: normal inspection Neurologic Exam: alert, oriented x 3, cooperative, director [employer]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-XII nml as tested, normal mood/affect, No motor deficits, No sensory deficit Skin Exam: normal color, warm, dry SpO2 Interpretation: normal SpO2: 99 O2 Delivery: Room Air Ordered Tests: Active Orders 24 hr Category Date Time Status POCT GLUCOSE Stat Lab 01/12/24 22:33 Completed UA W/RFX UR CULTURE Stat Lab 01/13/24 01:11 Completed Medication Summary Discontinued Medications Generic Name Dose Route Start Last Admin Trade Name Freq PRN Reason Stop Dose Admin Ceftriaxone Sodium 1 gm in 100 mls @ 200 mls/hr 01/13/24 00:51 01/13/24 01:11 Rocephin 1 Gm / 100 Ml Nacl IV 01/13/24 01:20 Not Given STAT ONE Sodium Chloride 1,000 mls @ 999 mls/hr 01/13/24 00:58 01/13/24 02:05 Sodium Chloride 0.9% 1000 Ml IV 01/13/24 01:58 Infused .Q1H1M STA Infusion Sodium Chloride Confirm 01/13/24 01:04 Sodium Chloride 0.9% 1000 Ml Administered 01/13/24 01:05 Dose 1,000 mls @ ud .ROUTE .STK-MED ONE Morphine Sulfate 2 mg 01/13/24 00:51 01/13/24 01:05 Morphine Sulfate 2 Mg/Ml Inj IV 01/13/24 00:52 Not Given STAT ONE Lab/Rad Data: Laboratory Result Diagrams 01/12/24 00:16 01/12/24 00:16 Laboratory Results 01/13/24 01/13/24 01/12/24 Range/Units 01:11 01:11 22:33 WBC (3.98-10.04) x10^3/uL RBC (3.93-5.22) x10^6/uL Hgb (11.2-15.7) g/dL Hct (34.1-44.9) % MCV (79.4-94.8) fL MCH (25.6-32.2) pg MCHC (32.2-35.5) g/dL RDW (11.7-14.4) % Plt Count (182-369) x10^3/uL MPV (9.4-12.3) fL Gran % (34.0-71.1) % Immature Gran % (Auto) (0.001-0.429) % Nucleat RBC Rel Count (0.00-0.2) % Eos # (Auto) (0.04-0.36) x10^3/uL Immature Gran # (Auto) (0.001-0.031) x10^3u/L Absolute Lymphs (auto) (1.18-3.74) x10^3/uL Absolute Monos (auto) (0.24-0.86) x10^3/uL Absolute Nucleated RBC (0.00-0.012) x10^3u/L Lymphocytes % (19.3-51.7) % Monocytes % (4.7-12.5) % Eosinophils % (0.7-5.8) % Basophils % (0.1-1.2) % Absolute Granulocytes (1.56-6.13) x10^3/uL Basophils # (0.01-0.08) x10^3/uL Sodium (135-145) mmol/L Potassium (3.5-5.1) mmol/L Chloride (98-107) mmol/L Carbon Dioxide (22-30) mmol/L Anion Gap (5-15) MEQ/L BUN (7-17) mg/dL Creatinine (0.52-1.04) mg/dL Estimated GFR ML/MIN Glucose (74-106) mg/dL POC Glucometer 162 H (74 to 106) mg/dL Calcium (8.4-10.2) mg/dL Total Bilirubin (0.2-1.3) mg/dL AST (14-36) U/L ALT (0-35) U/L Alkaline Phosphatase (38-126) U/L Serum Total Protein (6.3-8.2) g/dL Albumin (3.5-5.0) g/dL Free T4 (0.78-2.19) ng/dL TSH 3rd Generation (0.470-4.680) mIU/L Urine Color Yellow (Yellow) Urine Appearance Clear (Clear) Urine pH 6.5 (4.6-8.0) Ur Specific [place] 1.015 (1.005-1.030) Urine Protein Negative (Negative) Urine Glucose (UA) Negative (Negative) mg/dL Urine Ketones Negative (Negative) Urine Blood Negative (Negative) Urine Nitrite Negative (Negative) Urine Bilirubin Negative (Negative) Urine Urobilinogen 0.2 (0.2) mg/dL Ur Leukocyte Esterase Negative (Negative) U Hyaline Cast (Auto) NONE SEEN (0-2) /LPF Urine Microscopic RBC 0-2 (0-5) /HPF Urine Microscopic WBC 0-2 (0-5) /HPF Ur Epithelial Cells Rare (None Seen) /HPF Urine Bacteria None Seen (None Seen) /HPF Urine Culture Reflexed NO (NO) Influenza Type A Ag NEGATIVE (NEGATIVE) Influenza Type B Ag NEGATIVE (NEGATIVE) RSV (PCR) NEGATIVE (NEGATIVE) SARS-CoV-2 (PCR) NEGATIVE (NEGATIVE) 01/12/24 01/12/24 01/12/24 Range/Units 00:16 00:16 00:16 WBC 7.8 (3.98-10.04) x10^3/uL RBC 4.50 (3.93-5.22) x10^6/uL Hgb 13.4 (11.2-15.7) g/dL Hct 41.7 (34.1-44.9) % MCV 92.7 (79.4-94.8) fL MCH 29.8 (25.6-32.2) pg MCHC 32.1 L (32.2-35.5) g/dL RDW 14.8 H (11.7-14.4) % Plt Count 203 (182-369) x10^3/uL MPV 10.3 (9.4-12.3) fL Gran % 44.2 (34.0-71.1) % Immature Gran % (Auto) 0.3 (0.001-0.429) % Nucleat RBC Rel Count 0.0 (0.00-0.2) % Eos # (Auto) 0.13 (0.04-0.36) x10^3/uL Immature Gran # (Auto) 0.02 (0.001-0.031) x10^3u/L Absolute Lymphs (auto) 3.60 (1.18-3.74) x10^3/uL Absolute Monos (auto) 0.54 (0.24-0.86) x10^3/uL Absolute Nucleated RBC 0.00 (0.00-0.012) x10^3u/L Lymphocytes % 46.0 (19.3-51.7) % Monocytes % 6.9 (4.7-12.5) % Eosinophils % 1.7 (0.7-5.8) % Basophils % 0.9 (0.1-1.2) % Absolute Granulocytes 3.46 (1.56-6.13) x10^3/uL Basophils # 0.07 (0.01-0.08) x10^3/uL Sodium 142 (135-145) mmol/L Potassium 3.4 L (3.5-5.1) mmol/L Chloride 106 (98-107) mmol/L Carbon Dioxide 27 (22-30) mmol/L Anion Gap 11.7 (5-15) MEQ/L BUN 11 (7-17) mg/dL Creatinine 1.17 H (0.52-1.04) mg/dL Estimated GFR 59.4 ML/MIN Glucose 109 H (74-106) mg/dL POC Glucometer (74 to 106) mg/dL Calcium 9.3 (8.4-10.2) mg/dL Total Bilirubin 0.70 (0.2-1.3) mg/dL AST 72 H (14-36) U/L ALT 60 H (0-35) U/L Alkaline Phosphatase 69 (38-126) U/L Serum Total Protein 7.4 (6.3-8.2) g/dL Albumin 4.7 (3.5-5.0) g/dL Free T4 < 0.07 L (0.78-2.19) ng/dL TSH 3rd Generation 152.860 H (0.470-4.680) mIU/L Urine Color (Yellow) Urine Appearance (Clear) Urine pH (4.6-8.0) Ur Specific [place] (1.005-1.030) Urine Protein (Negative) Urine Glucose (UA) (Negative) mg/dL Urine Ketones (Negative) Urine Blood (Negative) Urine Nitrite (Negative) Urine Bilirubin (Negative) Urine Urobilinogen (0.2) mg/dL Ur Leukocyte Esterase (Negative) U Hyaline Cast (Auto) (0-2) /LPF Urine Microscopic RBC (0-5) /HPF Urine Microscopic WBC (0-5) /HPF Ur Epithelial Cells (None Seen) /HPF Urine Bacteria (None Seen) /HPF Urine Culture Reflexed (NO) Influenza Type A Ag (NEGATIVE) Influenza Type B Ag (NEGATIVE) RSV (PCR) (NEGATIVE) SARS-CoV-2 (PCR) (NEGATIVE) - Progress Progress: improved Medical Desision Making - Risk of complications Low Risk: Low risk of morbidity from additional dx testing or treatment - Departure Departure Disposition: Home Clinical Impression: Elevated TSH Fatigue Qualifiers: Fatigue type: unspecified Qualified Code(s): R53.83 - Other fatigue Condition: Stable Critical Care Time: No Referrals: MIREILLE APONTE MD [Primary Care Provider] - Follow up/PCP as directed Additional Instructions: TSH levels very high on exam, recommend repletion of thyroid hormone will start 25mcg synthroid daily call PCP Prescriptions: Levothyroxine Sodium 25 Mcg [Synthroid 25 Mcg] 25 mcg PO DAILY 30 Days #30 tablet
[2024-01-13 03:04] VITALS: BP 125/86; PULSE 80; RESP 18; O2SAT 98
== END 2024-01-13 03:04 | disposition home or self-care (01) ==
LOC: ED 21:56
DX: R94.6 Abnormal results of thyroid function studies (principal); R53.83 Other fatigue; E11.9 Type 2 diabetes mellitus without complications; Z79.84 Long term (current) use of oral hypoglycemic drugs; Z79.899 Other long term (current) drug therapy
CPT/HCPCS: 0241U; 36000; 36415; 80053; 81001; 82947; 84439; 84443; 85025; 99284

== ENCOUNTER 2024-04-06 11:18 | Emergency (ER) | payer MEDICARE ==
[2024-04-06 11:28] VITALS: TEMP 98.9
[2024-04-06] MEDS: BABY ASPIRIN 81 MG CHEW PO ONE (11:55)
[2024-04-06] MEDS ORDERED: BABY ASPIRIN 81 MG CHEW ONE (11:55)
[2024-04-06 12:43] LABS: Absolute Neutrophil Ct (ANC) 3.52 x10^3/uL (1.56-6.13); BASOPHIL % 0.7 % (0.1-1.2); Basophil (Absolute #) 0.05 x10^3/uL (0.01-0.08); Eosinophil % 5.9 % (0.7-5.8); Eosinophil (Absolute #) 0.41 x10^3/uL (0.04-0.36); Hematocrit 45.5 % (34.1-44.9); IMMATURE GRAN # 0.01 x10^3u/L (0.001-0.031); IMMATURE GRAN % 0.1 % (0.001-0.429); Lymphocyte (Absolute #) 2.57 x10^3/uL (1.18-3.74); Lymphocytes % 37.1 % (19.3-51.7); Mean Cell Volume 89.9 fL (79.4-94.8); Mean Corpuscular Hemoglobin 27.7 pg (25.6-32.2); Mean Corpuscular Hgb Concent. 30.8 g/dL (32.2-35.5); Mean Platelet Volume 9.6 fL (9.4-12.3); Monocyte (Absolute #) 0.36 x10^3/uL (0.24-0.86); Monocytes % 5.2 % (4.7-12.5); Platelet Count 280 x10^3/uL (182-369); Red Blood Count 5.06 x10^6/uL (3.93-5.22); White Blood Count 6.9 x10^3/uL (3.98-10.04)
--- NOTE | 2024-04-06 12:45 | ERPHSYRPT ---
- History of Present Illness Time Seen by Provider: 04/06/24 11:20 Historian: patient Exam Limitations: no limitations Patient Subjective Stated Complaint: Pt c/o of left sided chest pain that is below her left breast that began last night Triage Nursing Assessment: Pt brought to the ER by her , vitals wnl, rates pain as 9/10, pulses normal, skin n/w/d, no edema, no difficulty breathing, denies pain radiation, denies N&V, doesn't appear to be in any distress Physician History: 43 years old female with history of hypertension, hyperlipidemia, diabetes mellitus, hypothyroidism, anxiety, GERD presented in the ER with complains of left-sided chest pain continuous since last night, dull aching to sharp, minimal radiation to the left arm. Denies any significant aggravating or relieving factors. No associated palpitations or difficulty breathing. Does have minimal nonproductive cough. No fever or chills reported. No history of coronary artery disease. Nitro Today/Relief: no nitro taken today Aspirin Treatment Today: no aspirin today Allergies/Adverse Reactions: penicillin G Allergy (Mild, Verified 04/06/24 11:25) Itching morphine Adverse Reaction (Mild, Verified 04/06/24 11:25) Itching Home Medications: Esomeprazole Magnesium [Nexium] 40 mg PO DAILY 07/06/14 [History] Levothyroxine Sodium 75 Mcg [Synthroid 75 Mcg] 200 mcg PO DAILY 07/06/14 [History] ALPRAZolam 0.25 MG [xanAX 0.25 MG] 0.25 mg PO BIDPRN PRN 09/16/19 [History] Cetirizine HCl [Zyrtec] 10 mg PO DAILY 09/16/19 [History] Dicyclomine HCl 10 mg PO TID 09/16/19 [History] Ergocalciferol (Vitamin D2) [Vitamin D2] 50,000 unit PO Q7D 09/16/19 [History] Escitalopram Oxalate [Lexapro] 10 mg PO DAILY 09/16/19 [History] Linagliptin [Tradjenta] 5 mg PO DAILY 09/16/19 [History] Metoclopramide HCl [Reglan] 10 mg PO ACHS 09/16/19 [History] Hx Tetanus, Diphtheria Vaccination/Date Given: Yes Hx Influenza Vaccination/Date Given: Yes Hx Pneumococcal Vaccination/Date Given: No Travel Risk - International Travel Have you traveled outside of the country in past 3 weeks: No - Emerging Infectious Disease Are you exhibiting symptoms associated with any current EIDs: No - Review of Systems Constitutional: No Symptoms Eyes: No Symptoms Ears, Nose, & Throat: No Symptoms Respiratory: Cough Cardiac: Chest Pain Abdominal/Gastrointestinal: No Symptoms Genitourinary Symptoms: No Symptoms Skin: No Symptoms Neurological: No Symptoms Endocrine: No Symptoms Hematologic/Lymphatic: No Symptoms - Past Medical History Pertinent Past Medical History: Yes Neurological History: No Pertinent History ENT History: No Pertinent History Cardiac History: No Pertinent History Respiratory History: No Pertinent History Endocrine Medical History: Diabetes Type II, Hypothyroidism Musculoskeletal History: Other GI Medical History: GERD, Gallbladder Disease, Hernia History: No Pertinent History Psycho-Social History: No Pertinent History Female Reproductive Disorders: No Pertinent History Other Medical History: HX RIGHT KNEE ARTHROSCOPY AFTER A FALL "YEARS AGO" TO "CLEAN IT OUT" - Past Surgical History Past Surgical History: Yes Neuro Surgical History: No Pertinent History Cardiac: No Pertinent History Respiratory: No Pertinent History Gastrointestinal: Cholecystectomy, Hernia Repair Genitourinary: No Pertinent History Musculoskeletal: No Pertinent History Female Surgical History: Hysterectomy, Section, Tubal Ligation, Other Other Surgical History: breast biopsy apr 2014, right knee scope Significant Family History: no pertinent family hx - Female History Hx Now: No (hysterectomy) - Social History Smoking Status: Never smoker Exposure to second hand smoke: No Drug Use: none Patient Lives Alone: No - Social Determinants of Health Will the patient participate in the screening: Yes Do you worry about a steady place to live?: No Do you have any problems with any of the following?: No known problems In the past 12 months,have you had to go without utilities?: No Transportation Issues: No Has anyone in your support network made you feel unsafe?: No Have you or anyone in your house had to go without enough: No - Nursing Vital Signs Nursing Vital Signs: Initial Vital Signs Temperature 98.9 F 04/06/24 11:21 Pulse Rate 87 04/06/24 11:21 Respiratory Rate 14 04/06/24 11:21 Blood Pressure 100/70 04/06/24 11:21 O2 Sat by Pulse Oximetry 97 04/06/24 11:21 Pain Scale Pain Intensity 10 - Physical Exam General Appearance: no apparent distress, alert Eye Exam: PERRL/EOMI Ears, Nose, Throat Exam: normal ENT inspection Neck Exam: normal inspection, full range of motion Respiratory Exam: normal breath sounds, lungs clear, No chest tenderness Cardiovascular Exam: regular rate/rhythm, normal heart sounds Gastrointestinal/Abdomen Exam: soft, normal bowel sounds, No tenderness Extremity Exam: normal inspection, normal range of motion Neurologic Exam: alert, oriented x 3, cooperative Skin Exam: normal color SpO2 Interpretation: normal SpO2: 97 O2 Delivery: Room Air - Course EKG Interpreted by Me: RATE (81), Sinus Rhythm, Left [place] Deviation, NORMAL INTERVALS, Non-specific ST Changes Ordered Tests: Active Orders 24 hr Category Date Time Status Pig Furnace Operator STAT Care 04/06/24 11:47 Completed EKG-ER Only STAT Care 04/06/24 11:46 Completed IV Insertion STAT Care 04/06/24 11:46 Completed CHEST 1 VIEW (PORTABLE) Stat Exams 04/06/24 11:47 Completed CBC W DIFF Stat Lab 04/06/24 12:37 Completed CMP Stat Lab 04/06/24 12:37 Completed D-DIMER QUANTITATIVE Stat Lab 04/06/24 12:20 Completed NT PRO BNPII Stat Lab 04/06/24 12:37 Completed TROPONIN Q4H Lab 04/06/24 12:37 Completed TROPONIN Q4H Lab 04/06/24 15:35 Completed Medication Summary Discontinued Medications Generic Name Dose Route Start Last Admin Trade Name Freq PRN Reason Stop Dose Admin Aspirin 324 mg 04/06/24 11:46 04/06/24 11:55 Aspirin 81 Mg Tab.Chew PO 04/06/24 11:47 324 mg STAT ONE Administration Aspirin Confirm 04/06/24 11:55 Aspirin 81 Mg Tab.Chew Administered 04/06/24 11:56 Dose 324 mg .ROUTE .STK-MED ONE Diphenhydramine HCl 25 mg 04/06/24 15:20 04/06/24 15:24 Diphenhydramine Hcl 50 Mg/Ml Vial IV 04/06/24 15:21 25 mg STAT ONE Administration Diphenhydramine HCl Confirm 04/06/24 15:23 Diphenhydramine Hcl 50 Mg/Ml Vial Administered 04/06/24 15:24 Dose 50 mg .ROUTE .STK-MED ONE Morphine Sulfate 4 mg 04/06/24 14:05 04/06/24 14:34 Morphine Sulfate 4 Mg/Ml Injection IV 04/06/24 14:06 4 mg STAT ONE Administration Morphine Sulfate Confirm 04/06/24 14:29 Morphine Sulfate 4 Mg/Ml Injection Administered 04/06/24 14:30 Dose 4 mg .ROUTE .STK-MED ONE Ondansetron HCl 4 mg 04/06/24 14:05 04/06/24 14:31 Ondansetron Hcl 4 Mg/2 Ml Vial IV 04/06/24 14:06 4 mg STAT ONE Administration Ondansetron HCl Confirm 04/06/24 14:28 Ondansetron Hcl 4 Mg/2 Ml Vial Administered 04/06/24 14:29 Dose 4 mg .ROUTE .STK-MED ONE Lab/Rad Data: Laboratory Result Diagrams 04/06/24 12:37 04/06/24 12:37 Laboratory Results 04/06/24 04/06/24 04/06/24 Range/Units 15:35 12:37 12:37 WBC (3.98-10.04) x10^3/uL RBC (3.93-5.22) x10^6/uL Hgb (11.2-15.7) g/dL Hct (34.1-44.9) % MCV (79.4-94.8) fL MCH (25.6-32.2) pg MCHC (32.2-35.5) g/dL RDW (11.7-14.4) % Plt Count (182-369) x10^3/uL MPV (9.4-12.3) fL Gran % (34.0-71.1) % Immature Gran % (Auto) (0.001-0.429) % Nucleat RBC Rel Count (0.00-0.2) % Eos # (Auto) (0.04-0.36) x10^3/uL Immature Gran # (Auto) (0.001-0.031) x10^3u/L Absolute Lymphs (auto) (1.18-3.74) x10^3/uL Absolute Monos (auto) (0.24-0.86) x10^3/uL Absolute Nucleated RBC (0.00-0.012) x10^3u/L Lymphocytes % (19.3-51.7) % Monocytes % (4.7-12.5) % Eosinophils % (0.7-5.8) % Basophils % (0.1-1.2) % Absolute Granulocytes (1.56-6.13) x10^3/uL Basophils # (0.01-0.08) x10^3/uL D-Dimer (0.0-0.50) mg/L Sodium 140 (135-145) mmol/L Potassium 3.8 (3.5-5.1) mmol/L Chloride 106 (98-107) mmol/L Carbon Dioxide 27 (22-30) mmol/L Anion Gap 11.2 (5-15) MEQ/L BUN 12 (7-17) mg/dL Creatinine 0.84 (0.52-1.04) mg/dL Estimated GFR 88.4 ML/MIN Glucose 92 (74-106) mg/dL Calcium 8.9 (8.4-10.2) mg/dL Total Bilirubin 0.30 (0.2-1.3) mg/dL AST 26 (14-36) U/L ALT 18 (0-35) U/L Alkaline Phosphatase 63 (38-126) U/L Troponin I < 0.012 < 0.012 (0.000-0.033) ng/mL NT-Pro-B Natriuret Pep 51.6 (<300) pg/mL Serum Total Protein 6.7 (6.3-8.2) g/dL Albumin 4.0 (3.5-5.0) g/dL 04/06/24 04/06/24 Range/Units 12:37 12:20 WBC 6.9 (3.98-10.04) x10^3/uL RBC 5.06 (3.93-5.22) x10^6/uL Hgb 14.0 (11.2-15.7) g/dL Hct 45.5 H (34.1-44.9) % MCV 89.9 (79.4-94.8) fL MCH 27.7 (25.6-32.2) pg MCHC 30.8 L (32.2-35.5) g/dL RDW 13.0 (11.7-14.4) % Plt Count 280 (182-369) x10^3/uL MPV 9.6 (9.4-12.3) fL Gran % 51.0 (34.0-71.1) % Immature Gran % (Auto) 0.1 (0.001-0.429) % Nucleat RBC Rel Count 0.0 (0.00-0.2) % Eos # (Auto) 0.41 H (0.04-0.36) x10^3/uL Immature Gran # (Auto) 0.01 (0.001-0.031) x10^3u/L Absolute Lymphs (auto) 2.57 (1.18-3.74) x10^3/uL Absolute Monos (auto) 0.36 (0.24-0.86) x10^3/uL Absolute Nucleated RBC 0.00 (0.00-0.012) x10^3u/L Lymphocytes % 37.1 (19.3-51.7) % Monocytes % 5.2 (4.7-12.5) % Eosinophils % 5.9 H (0.7-5.8) % Basophils % 0.7 (0.1-1.2) % Absolute Granulocytes 3.52 (1.56-6.13) x10^3/uL Basophils # 0.05 (0.01-0.08) x10^3/uL D-Dimer 0.31 (0.0-0.50) mg/L Sodium (135-145) mmol/L Potassium (3.5-5.1) mmol/L Chloride (98-107) mmol/L Carbon Dioxide (22-30) mmol/L Anion Gap (5-15) MEQ/L BUN (7-17) mg/dL Creatinine (0.52-1.04) mg/dL Estimated GFR ML/MIN Glucose (74-106) mg/dL Calcium (8.4-10.2) mg/dL Total Bilirubin (0.2-1.3) mg/dL AST (14-36) U/L ALT (0-35) U/L Alkaline Phosphatase (38-126) U/L Troponin I (0.000-0.033) ng/mL NT-Pro-B Natriuret Pep (<300) pg/mL Serum Total Protein (6.3-8.2) g/dL Albumin (3.5-5.0) g/dL - Progress Progress: improved, re-examined Air Movement: good Progress Note: 04/06/24 15:59 43-year-old is evaluated in ER for left-sided chest pain since last night, continuous. EKG showed sinus rhythm with no ST elevations. Has negative troponins x 2, negative D-dimers. Chest x-ray negative for any acute cardiopulmonary findings reviewed by me, official report is pending. Normal white count and fairly unremarkable chemistries. She is given symptomatic treatment with Toradol and morphine, on reevaluation her pain is better. With patient's symptoms going on since last night and 2 negative troponins I believe it rules ACS. Patient does have risk factors for CAD and would refer her outpatient for further evaluation with cardiology. Discussed signs symptoms of worsening needing return to ER which she seems understanding. Stable for discharge. 04/06/24 16:00 Blood Culture(s) Obtained: No Antibiotics given: No Counseled pt/family regarding: lab results, diagnosis, need for follow-up, rad results Medical Desision Making - Independent Historian Additional History obtained from: Spouse - Diagnostic Testing Diagnostic test were ordered, analyzed, and reviewed by me: Yes Radiological Interpretation: Interpreted by me, Reviewed by me - Risk of complications The pt has a mod risk of morbidity or mortality based on: Need for prescription drug management - Departure Departure Disposition: Extended Care Facility Clinical Impression: Atypical chest pain Condition: Stable Critical Care Time: No Referrals: MIREILLE APONTE MD [Primary Care Provider] - Follow up with PCP 1 day ADRIANA BANDA [CONSULTING PHYSICIAN] - Follow up/PCP as directed (Call for reevaluation appointment) Instructions: Angina (DC), Chest Pain (DC) Additional Instructions: Take Tylenol as needed. Follow-up with primary care/cardiology for reevalua tion. Return to ER for any worsening.
[2024-04-06 13:07] LABS: ANION GAP 11.2 MEQ/L (5-15); BILIRUBIN,TOTAL 0.3 mg/dL (0.2-1.3); Calcium 8.9 mg/dL (8.4-10.2); Creatinine 1 0.84 mg/dL (0.52-1.04); EST GLOMERULAR FILTRATION RATE 88.4 ML/MIN; NT PRO BNPII 51.6 pg/mL (<300); Potassium 3.8 mmol/L (3.5-5.1); Total Protein 6.7 g/dL (6.3-8.2)
[2024-04-06] MEDS ORDERED: Zofran 4 MG/2 ML VIAL ONE (14:28)
[2024-04-06] MEDS ORDERED: MORPHINE SULFATE 4 MG INJ ONE (14:29)
[2024-04-06] MEDS: Zofran 4 MG/2 ML VIAL IV ONE (14:31)
[2024-04-06] MEDS: MORPHINE SULFATE 4 MG INJ IV ONE (14:34)
[2024-04-06] MEDS ORDERED: BENADRYL 50 MG/ML ONE (15:23)
[2024-04-06] MEDS: BENADRYL 50 MG/ML IV ONE (15:24)
[2024-04-06 15:56] VITALS: PULSE 63
[2024-04-06 16:02] VITALS: O2SAT 97
[2024-04-06 16:15] VITALS: BP 111/68; RESP 19
--- NOTE | 2024-04-06 19:30 | XRAY ---
Indication: Chest pain. Comparison: August 16, 2012 Portable chest again demonstrates normal heart, lungs, and bony thorax.
== END 2024-04-06 16:48 | disposition home or self-care (01) ==
LOC: ED 11:18
DX: R07.89 Other chest pain (principal); R05.9 Cough, unspecified; I10 Essential (primary) hypertension; E78.5 Hyperlipidemia, unspecified; E11.9 Type 2 diabetes mellitus without complications; Z79.84 Long term (current) use of oral hypoglycemic drugs; Z79.899 Other long term (current) drug therapy
CPT/HCPCS: 36000; 36415; 71045; 80053; 83880; 84484; 85025; 85379; 93005; 93041; 96374; 96375; 99284; J1200; J2270; J2405; A9270-GY

== ENCOUNTER 2024-06-06 19:12 | Emergency (ER) | payer MEDICARE ==
--- NOTE | 2024-06-06 19:17 | ERPHSYRPT ---
- History of Present Illness Time Seen by Provider: 06/06/24 19:17 Source: patient Exam Limitations: no limitations Physician History: This is a morbidly obese 43-year-old white female patient who arrives by private vehicle escorted by her secondary to left foot pain and left ankle pain. Specifically on the foot, there is tenderness of the left foot fifth toe. Yesterday, patient was running across the road and tripped on the curb. There is no other area of injury or pain complaint. Method of Injury: fell Occurred: yesterday Quality: aching Severity of Pain-Max: mild (Moderate) Severity of Pain-Current: mild (To moderate) Lower Extremities Pain: ankle: left, 5th toe: left Modifying Factors: Improves With: movement Associated Symptoms: other (The fifth toe hurts when she ambulates.) Allergies/Adverse Reactions: penicillin G Allergy (Mild, Verified 06/06/24 19:18) Itching morphine Adverse Reaction (Mild, Verified 06/06/24 19:18) Itching Home Medications: Esomeprazole Magnesium [Nexium] 40 mg PO DAILY 07/06/14 [History] Levothyroxine Sodium 75 Mcg [Synthroid 75 Mcg] 100 mcg PO DAILY 07/06/14 [History] ALPRAZolam 0.25 MG [xanAX 0.25 MG] 0.25 mg PO BIDPRN PRN 09/16/19 [History ] Cetirizine HCl [Zyrtec] 10 mg PO DAILY 09/16/19 [History] Dicyclomine HCl 10 mg PO TID 09/16/19 [History] Ergocalciferol (Vitamin D2) [Vitamin D2] 50,000 unit PO Q7D 09/16/19 [History] Escitalopram Oxalate [Lexapro] 10 mg PO DAILY 09/16/19 [History] Linagliptin [Tradjenta] 5 mg PO DAILY 09/16/19 [History] Metoclopramide HCl [Reglan] 10 mg PO ACHS 09/16/19 [History] Dulaglutide [Trulicity] 0.75 mg SQ WEEKLY 06/06/24 [History] Gabapentin 100 mg PO TID 06/06/24 [History] Hx Tetanus, Diphtheria Vaccination/Date Given: Yes Hx Influenza Vaccination/Date Given: Yes Hx Pneumococcal Vaccination/Date Given: No Travel Risk - International Travel Have you traveled outside of the country in past 3 weeks: No - Emerging Infectious Disease Are you exhibiting symptoms associated with any current EIDs: No - Review of Systems Constitutional: No Symptoms Eyes: No Symptoms Ears, Nose, & Throat: No Symptoms Respiratory: No Symptoms Cardiac: No Symptoms Abdominal/Gastrointestinal: No Symptoms Genitourinary Symptoms: No Symptoms Musculoskeletal: Fall, Injury (Left foot and ankle) Skin: No Symptoms Neurological: No Symptoms Psychological: No Symptoms Endocrine: No Symptoms Hematologic/Lymphatic: No Symptoms Immunological/Allergic: No Symptoms All Other Systems: Reviewed and Negative - Past Medical History Pertinent Past Medical History: Yes Neurological History: No Pertinent History ENT History: No Pertinent History Cardiac History: No Pertinent History Respiratory History: No Pertinent History Endocrine Medical History: Diabetes Type II, Hypothyroidism Musculoskeletal History: Other GI Medical History: GERD, Gallbladder Disease, Hernia History: No Pertinent History Psycho-Social History: No Pertinent History Female Reproductive Disorders: No Pertinent History Other Medical History: HX RIGHT KNEE ARTHROSCOPY AFTER A FALL "YEARS AGO" TO "CLEAN IT OUT" - Past Surgical History Past Surgical History: Yes Neuro Surgical History: No Pertinent History Cardiac: No Pertinent History Respiratory: No Pertinent History Gastrointestinal: Cholecystectomy, Hernia Repair Genitourinary: No Pertinent History Musculoskeletal: No Pertinent History Female Surgical History: Hysterectomy, Section, Tubal Ligation, Other Other Surgical History: breast biopsy apr 2014, right knee scope Significant Family History: no pertinent family hx - Social History Smoking Status: Never smoker Exposure to second hand smoke: No Drug Use: none Patient Lives Alone: No - Social Determinants of Health Will the patient participate in the screening: Yes Do you worry about a steady place to live?: No In the past 12 months,have you had to go without utilities?: No Transportation Issues: No Has anyone in your support network made you feel unsafe?: No Have you or anyone in your house had to go without enough: No - Nursing Vital Signs Nursing Vital Signs: Initial Vital Signs Temperature 98.6 F 06/06/24 19:21 Pulse Rate 77 06/06/24 19:21 Respiratory Rate 18 06/06/24 19:21 Blood Pressure 144/86 06/06/24 19:21 O2 Sat by Pulse Oximetry 99 06/06/24 19:21 Pain Scale Pain Intensity 9 - Physical Exam General Appearance: no apparent distress, alert, anxiety, obese Eyes, Ears, Nose, Throat Exam: normal ENT inspection, moist mucous membranes Neck Exam: normal inspection, non-tender, supple, full range of motion Cardiovascular/Respiratory Exam: chest non-tender, no respiratory distress Gastrointestinal/Abdominal Exam: non-tender Back Exam: normal inspection, normal range of motion, No CVA tenderness, No vertebral tenderness Hips Exam: bilateral: non-tender, normal inspection, normal range of motion, no evidence of injury Legs Exam: bilateral leg: non-tender, normal inspection, normal range of motion, no evidence of injury Knees Exam: bilateral knee: non-tender, normal inspection, normal range of motion, no evidence of injury Ankle Exam: bilateral ankle: non-tender, normal inspection, normal range of motion, no evidence of injury Foot Exam: right foot: non-tender, left foot: bone tenderness (Fifth toe), soft tissue tenderness (Fifth toe), bilateral foot: normal inspection, normal range of motion, no evidence of injury Neuro/Tendon Exam: normal sensation, normal motor functions, normal tendon functions, responds to pain, no evidence tendon injury Mental Status Exam: alert, oriented x 3, cooperative Skin Exam: normal color, warm, dry SpO2 Interpretation: normal O2 Delivery: Room Air - Course Nursing assessment & vital signs reviewed: Yes Ordered Tests: Active Orders 24 hr Category Date Time Status ANKLE (3 VIEWS) Stat Exams 06/06/24 19:21 Taken FOOT (MINIMUM 3 VIEWS) Stat Exams 06/06/24 19:21 Taken - Progress Progress: unchanged, pain not gone completely Progress Note: 06/06/24 20:22 My medical decision making and the assignment of low complexity to this patient's medical issue today is based on review of the patient's past medical history, review the patient's medication list, reviewed patient drug allergy list, history present illness and physical findings on examination. The workup in this patient includes x-ray of the patient's left foot and left ankle. Differential diagnosis includes but is not limited to ankle sprain, ankle fracture and/or dislocation, foot sprain, fracture/dislocation of metatarsals and or digits I interpreted the following preliminary reports: X-ray of the left ankle shows no acute fracture or dislocation. X-ray of the left foot shows no acute fracture or dislocation Counseled pt/family regarding: diagnosis, need for follow-up, rad results Medical Desision Making - Independent Historian Additional History obtained from: Spouse - Diagnostic Testing Diagnostic test were ordered, analyzed, and reviewed by me: Yes Radiological Interpretation: Interpreted by me - Risk of complications Minimal Risk: Minimal risk of morbidity - Departure Departure Disposition: Home Clinical Impression: Sprain of left foot, Sprain of fifth toe, left Condition: Stable Critical Care Time: No Referrals: MIREILLE APONTE MD [Primary Care Provider] - Follow up/PCP as directed Additional Instructions: Ice bath left foot 3-4 times a day for the next 2 to 3 days. Call your primary care provider on 06/08/2024, to make arrangements for follow-up appointment to be evaluated in the next 5 to 7 days. If there are no contraindications, use Tylenol and ibuprofen for pain control.
[2024-06-06 19:32] VITALS: PULSE 77; TEMP 98.6
[2024-06-06 20:41] VITALS: BP 124/87; RESP 16; O2SAT 98
--- NOTE | 2024-06-07 07:49 | XRAY ---
Indication: Pain following fall. Comparison: October 14, 2023 3 view left ankle unchanged again demonstrating tiny plantar heel spur. No new/acute bony, articular, or soft tissue abnormalities.
--- NOTE | 2024-06-07 07:53 | XRAY ---
Indication: Pain following fall. Comparison: September 30, 2023 3 nonweightbearing views left foot demonstrates new nondisplaced fracture shaft distal phalanx 5th toe. Stable tiny plantar heel spur. No other bony, articular, or soft tissue abnormalities. Comment: Telephone report given to Dr. Sampson at 0748 hrs. on June 07, 2024.
== END 2024-06-06 20:45 | disposition home or self-care (01) ==
LOC: ED 19:12
DX: S93.602A Unspecified sprain of left foot, initial encounter (principal); S93.505A Unspecified sprain of left lesser toe(s), initial encounter; S92.535A Nondisplaced fracture of distal phalanx of left lesser toe(s), initial encounter for closed fracture; W18.49XA Other slipping, tripping and stumbling without falling, initial encounter; Y93.02 Activity, running; E11.9 Type 2 diabetes mellitus without complications; Z79.84 Long term (current) use of oral hypoglycemic drugs; Z79.899 Other long term (current) drug therapy
CPT/HCPCS: 73610; 73630; 99283

== ENCOUNTER 2024-07-04 15:21 | Emergency (ER) | payer MEDICARE ==
--- NOTE | 2024-07-04 18:01 | ERPHSYRPT ---
- History of Present Illness Time Seen by Provider: 07/04/24 18:00 Historian: patient, family Exam Limitations: no limitations Physician History: This is an obese 43-year-old white female patient who arrives by private vehicle accompanied by her significant other. The patient's primary care provider is Dr. Aponte. This patient ate turkey on (07/02/2024) she seemed to tolerate that well. However the morning of 07/03/2024 she was having some epigastric discomfort. By the evening she vomited twice. This morning she vomited twice more and on 1 occasion there was some bright red blood present. She currently denies abdominal pain she told me she has had no prior abdominal surgeries. However in review of her medication list and past medical/surgical history it appears as though she has gastroesophageal reflux disease, type 2 diabetes, hypothyroidism, and has had a cholecystectomy, hysterectomy, and bilateral tubal ligation. Timing/Duration: yesterday Activities at Onset: none Quality: aching Abdominal Pain Onset Location: epigastric Pain Radiation: epigastric Severity of Pain-Max: mild (Moderate) Severity of Pain-Current: mild (Gastrium) Modifying Factors: Improves With: vomiting Associated Symptoms: loss of appetite, nausea, vomiting Previous symptoms: no prior history, no recent treatment Allergies/Adverse Reactions: penicillin G Allergy (Mild, Verified 06/06/24 19:18) Itching morphine Adverse Reaction (Mild, Verified 06/06/24 19:18) Itching Home Medications: Esomeprazole Magnesium [Nexium] 40 mg PO DAILY 07/06/14 [History] Levothyroxine Sodium 75 Mcg [Synthroid 75 Mcg] 100 mcg PO DAILY 07/06/14 [History] ALPRAZolam 0.25 MG [xanAX 0.25 MG] 0.25 mg PO BIDPRN PRN 09/16/19 [History] Cetirizine HCl [Zyrtec] 10 mg PO DAILY 09/16/19 [History] Dicyclomine HCl 10 mg PO TID 09/16/19 [History] Ergocalciferol (Vitamin D2) [Vitamin D2] 50,000 unit PO Q7D 09/16/19 [History] Escitalopram Oxalate [Lexapro] 10 mg PO DAILY 09/16/19 [History] Linagliptin [Tradjenta] 5 mg PO DAILY 09/16/19 [History] Metoclopramide HCl [Reglan] 10 mg PO ACHS 09/16/19 [History] Dulaglutide [Trulicity] 0.75 mg SQ WEEKLY 06/06/24 [History] Gabapentin 100 mg PO TID 06/06/24 [History] Hx Tetanus, Diphtheria Vaccination/Date Given: Yes Hx Influenza Vaccination/Date Given: Yes Hx Pneumococcal Vaccination/Date Given: No Travel Risk - Emerging Infectious Disease Are you exhibiting symptoms associated with any current EIDs: No - Review of Systems Constitutional: No Symptoms Eyes: No Symptoms Ears, Nose, & Throat: No Symptoms Respiratory: No Symptoms Cardiac: No Symptoms Abdominal/Gastrointestinal: Abdominal Pain, Nausea, Vomiting, Hematemesis (Wants), Appetite Changes Genitourinary Symptoms: No Symptoms Musculoskeletal: No Symptoms Skin: No Symptoms Neurological: No Symptoms Psychological: No Symptoms Endocrine: No Symptoms Hematologic/Lymphatic: No Symptoms Immunological/Allergic: No Symptoms All Other Systems: Reviewed and Negative - Past Medical History Pertinent Past Medical History: Yes Neurological History: No Pertinent History ENT History: No Pertinent History Cardiac History: No Pertinent History Respiratory History: No Pertinent History Endocrine Medical History: Diabetes Type II, Hypothyroidism Musculoskeletal History: Other GI Medical History: GERD, Gallbladder Disease, Hernia History: No Pertinent History Psycho-Social History: No Pertinent History Female Reproductive Disorders: No Pertinent History Other Medical History: HX RIGHT KNEE ARTHROSCOPY AFTER A FALL "YEARS AGO" TO "CLEAN IT OUT" - Past Surgical History Past Surgical History: Yes Neuro Surgical History: No Pertinent History Cardiac: No Pertinent History Respiratory: No Pertinent History Gastrointestinal: Cholecystectomy, Hernia Repair Genitourinary: No Pertinent History Musculoskeletal: No Pertinent History Female Surgical History: Hysterectomy, Section, Tubal Ligation, Other Other Surgical History: breast biopsy apr 2014, right knee scope Significant Family History: no pertinent family hx - Female History Hx Last Menstrual Period: tubal - Social History Smoking Status: Never smoker Exposure to second hand smoke: No Drug Use: none Patient Lives Alone: No - Social Determinants of Health Will the patient participate in the screening: Yes Do you worry about a steady place to live?: No In the past 12 months,have you had to go without utilities?: No Transportation Issues: No Has anyone in your support network made you feel unsafe?: No Have you or anyone in your house had to go without enough: No - Nursing Vital Signs Nursing Vital Signs: Initial Vital Signs Pulse Rate 77 07/04/24 17:48 Respiratory Rate 18 07/04/24 17:48 Blood Pressure 150/96 07/04/24 17:48 O2 Sat by Pulse Oximetry 98 07/04/24 17:48 Pain Scale Pain Intensity 0 - Physical Exam General Appearance: no apparent distress, alert, anxiety Eye Exam: PERRL/EOMI, eyes nml inspection Ears, Nose, Throat Exam: normal ENT inspection, moist mucous membranes Neck Exam: normal inspection, non-tender, supple, full range of motion Respiratory Exam: normal breath sounds, lungs clear, airway intact, No chest tenderness, No respiratory distress Cardiovascular Exam: regular rate/rhythm, normal heart sounds, normal peripheral pulses Gastrointestinal/Abdomen Exam: soft, normal bowel sounds, tenderness (Mild tenderness epigastrium to palpation), guarding (Mild guarding epigastrium to palpation), No rebound Pelvic Exam: not done Rectal Exam: not done Back Exam: normal inspection, normal range of motion, No CVA tenderness, No vertebral tenderness Extremity Exam: normal inspection, normal range of motion, pelvis stable Neurologic Exam: alert, oriented x 3, cooperative, gaming dealer II-XII nml as tested, nml cerebellar function, nml station & gait, sensation nml Skin Exam: normal color, warm, dry Lymphatic Exam: No adenopathy SpO2 Interpretation: normal O2 Delivery: Room Air - Course Nursing assessment & vital signs reviewed: Yes Ordered Tests: Active Orders 24 hr Category Date Time Status ABDOMEN AND PELVIS W/0 CONTRAS [CT] Stat Exams 07/04/24 18:21 Completed AMYLASE Stat Lab 07/04/24 19:15 Completed CBC W DIFF Stat Lab 07/04/24 19:15 Completed CMP Stat Lab 07/04/24 19:15 Completed CULTURE,URINE Stat Lab 07/04/24 18:23 Received HCG QUALITATIVE, URINE Stat Lab 07/04/24 18:23 Completed LIPASE Stat Lab 07/04/24 19:15 Completed UA W/RFX UR CULTURE Stat Lab 07/04/24 18:23 Completed Medication Summary Discontinued Medications Generic Name Dose Route Start Last Admin Trade Name Freq PRN Reason Stop Dose Admin Levofloxacin 500 mg 07/04/24 19:38 07/04/24 19:41 Levofloxacin 500 Mg Tablet PO 07/04/24 19:39 500 mg STAT ONE Administration Levofloxacin Confirm 07/04/24 19:41 Levofloxacin 500 Mg Tablet Administered 07/04/24 19:42 Dose 500 mg .ROUTE .STK-MED ONE Ondansetron HCl 4 mg 07/04/24 19:37 07/04/24 19:40 Zofran 4 Mg/Udtablet Orally Disintegrating PO 07/04/24 19:38 4 mg STAT ONE Administration Ondansetron HCl Confirm 07/04/24 19:39 Zofran 4 Mg/Udtablet Orally Disintegrating Administered 07/04/24 19:40 Dose 4 mg .ROUTE .STK-MED ONE Lab/Rad Data: Laboratory Result Diagrams 07/04/24 19:15 07/04/24 19:15 Laboratory Results 07/04/24 07/04/24 07/04/24 Range/Units 19:15 19:15 18:23 WBC 9.5 (3.98-10.04) x10^3/uL RBC 5.59 H (3.93-5.22) x10^6/uL Hgb 15.5 (11.2-15.7) g/dL Hct 49.4 H (34.1-44.9) % MCV 88.4 (79.4-94.8) fL MCH 27.7 (25.6-32.2) pg MCHC 31.4 L (32.2-35.5) g/dL RDW 15.6 H (11.7-14.4) % Plt Count 298 (182-369) x10^3/uL MPV 9.5 (9.4-12.3) fL Gran % 57.5 (34.0-71.1) % Immature Gran % (Auto) 0.2 (0.001-0.429) % Nucleat RBC Rel Count 0.0 (0.00-0.2) % Eos # (Auto) 0.21 (0.04-0.36) x10^3/uL Immature Gran # (Auto) 0.02 (0.001-0.031) x10^3u/L Absolute Lymphs (auto) 3.22 (1.18-3.74) x10^3/uL Absolute Monos (auto) 0.51 (0.24-0.86) x10^3/uL Absolute Nucleated RBC 0.00 (0.00-0.012) x10^3u/L Lymphocytes % 34.1 (19.3-51.7) % Monocytes % 5.4 (4.7-12.5) % Eosinophils % 2.2 (0.7-5.8) % Basophils % 0.6 (0.1-1.2) % Absolute Granulocytes 5.43 (1.56-6.13) x10^3/uL Basophils # 0.06 (0.01-0.08) x10^3/uL Sodium 143 (135-145) mmol/L Potassium 3.4 L (3.5-5.1) mmol/L Chloride 107 (98-107) mmol/L Carbon Dioxide 25 (22-30) mmol/L Anion Gap 14.4 (5-15) MEQ/L BUN 13 (7-17) mg/dL Creatinine 0.76 (0.52-1.04) mg/dL Estimated GFR 99.7 ML/MIN Glucose 82 (74-106) mg/dL Calcium 9.6 (8.4-10.2) mg/dL Total Bilirubin 0.80 (0.2-1.3) mg/dL AST 27 (14-36) U/L ALT 22 (0-35) U/L Alkaline Phosphatase 63 (38-126) U/L Serum Total Protein 8.2 (6.3-8.2) g/dL Albumin 4.9 (3.5-5.0) g/dL Amylase 71 (30-110) U/L Lipase 107 (23-300) U/L Urine Color (Yellow) Urine Appearance (Clear) Urine pH (4.6-8.0) Ur Specific [place] (1.005-1.030) Urine Protein (Negative) Urine Glucose (UA) (Negative) mg/dL Urine Ketones (Negative) Urine Blood (Negative) Urine Nitrite (Negative) Urine Bilirubin (Negative) Urine Urobilinogen (0.2) mg/dL Ur Leukocyte Esterase (Negative) U Hyaline Cast (Auto) (0-2) /LPF Urine Microscopic RBC (0-5) /HPF Urine Microscopic WBC (0-5) /HPF Ur Epithelial Cells (None Seen) /HPF Urine Bacteria (None Seen) /HPF Urine Culture Reflexed (NO) Urine HCG, Qual NEGATIVE (NEGATIVE) 11/30/24 Range/Units 18:23 WBC (3.98-10.04) x10^3/uL RBC (3.93-5.22) x10^6/uL Hgb (11.2-15.7) g/dL Hct (34.1-44.9) % MCV (79.4-94.8) fL MCH (25.6-32.2) pg MCHC (32.2-35.5) g/dL RDW (11.7-14.4) % Plt Count (182-369) x10^3/uL MPV (9.4-12.3) fL Gran % (34.0-71.1) % Immature Gran % (Auto) (0.001-0.429) % Nucleat RBC Rel Count (0.00-0.2) % Eos # (Auto) (0.04-0.36) x10^3/uL Immature Gran # (Auto) (0.001-0.031) x10^3u/L Absolute Lymphs (auto) (1.18-3.74) x10^3/uL Absolute Monos (auto) (0.24-0.86) x10^3/uL Absolute Nucleated RBC (0.00-0.012) x10^3u/L Lymphocytes % (19.3-51.7) % Monocytes % (4.7-12.5) % Eosinophils % (0.7-5.8) % Basophils % (0.1-1.2) % Absolute Granulocytes (1.56-6.13) x10^3/uL Basophils # (0.01-0.08) x10^3/uL Sodium (135-145) mmol/L Potassium (3.5-5.1) mmol/L Chloride (98-107) mmol/L Carbon Dioxide (22-30) mmol/L Anion Gap (5-15) MEQ/L BUN (7-17) mg/dL Creatinine (0.52-1.04) mg/dL Estimated GFR ML/MIN Glucose (74-106) mg/dL Calcium (8.4-10.2) mg/dL Total Bilirubin (0.2-1.3) mg/dL AST (14-36) U/L ALT (0-35) U/L Alkaline Phosphatase (38-126) U/L Serum Total Protein (6.3-8.2) g/dL Albumin (3.5-5.0) g/dL Amylase (30-110) U/L Lipase (23-300) U/L Urine Color Yellow (Yellow) Urine Appearance Cloudy A (Clear) Urine pH 6.0 (4.6-8.0) Ur Specific [place] 1.025 (1.005-1.030) Urine Protein Trace A (Negative) Urine Glucose (UA) Negative (Negative) mg/dL Urine Ketones Negative (Negative) Urine Blood Negative (Negative) Urine Nitrite Positive A (Negative) Urine Bilirubin Negative (Negative) Urine Urobilinogen 0.2 (0.2) mg/dL Ur Leukocyte Esterase Negative (Negative) U Hyaline Cast (Auto) NONE SEEN (0-2) /LPF Urine Microscopic RBC 3-5 (0-5) /HPF Urine Microscopic WBC 6-10 A (0-5) /HPF Ur Epithelial Cells Few (None Seen) /HPF Urine Bacteria Many A (None Seen) /HPF Urine Culture Reflexed YES (NO) Urine HCG, Qual (NEGATIVE) - Progress Progress: improved, re-examined Progress Note: 07/04/24 19:16 My medical decision making and the assignment of moderate complexity to this patient's medical issue today is based on review of the patient's past medical history, review of the patient's medication list, review of patient drug allergy list, history present illness and physical findings on examination. The workup in this patient includes CBC, CMP, amylase, lipase, urinalysis, CT scan of the abdomen pelvis without contrast. Differential diagnosis includes but is not limited to gastritis, duodenal ulcer, gastroesophageal reflux disease 07/04/24 20:05 I interpreted the patient's laboratory data results. Based on laboratory data results, the patient has a urinary tract infection. The CT scan of the abdomen pelvis was interpreted by the radiologist and I reviewed the impression. The impression states compared to the similar study performed on 02/07/2023, there is been no changes. The appendix is visualized and is normal. Although the patient charts stated that she may have had a cholecystectomy in the past, the gallbladder is present and is normal in size and shape. There is no wall thickening. There is no pericholecystic fluid. There is no evidence of gallstones. Counseled pt/family regarding: lab results, diagnosis, need for follow-up, rad results Medical Desision Making - Independent Historian Additional History obtained from: Spouse - Diagnostic Testing Diagnostic test were ordered, analyzed, and reviewed by me: Yes Radiological Interpretation: Reviewed by me, Teleradiologist Report - Risk of complications The pt has a mod risk of morbidity or mortality based on: Need for prescription drug management - Departure Departure Disposition: Home Clinical Impression: Epigastric abdominal pain Condition: Stable Critical Care Time: No Referrals: MIREILLE APONTE MD [Primary Care Provider] - Follow up/PCP as directed Additional Instructions: Drink plenty of clear liquids. Avoid fatty greasy spicy foods. Call your pr [facility] care provider on 07/06/2024, to make arrangements for follow-up appointment for further evaluation management. Take your antibiotics as prescribed Prescriptions: Ciprofloxacin [Cipro 500 MG] 500 mg PO BID #14 tablet
[2024-07-04 18:12] VITALS: TEMP 98.6
[2024-07-04 18:39] LABS: Appearance Cloudy (Clear); Bacteria Many /HPF (None Seen); Bilirubin Negative (Negative); Blood Negative (Negative); Epithelial Cells Few /HPF (None Seen); Glucose, Urine Negative (Negative); HCG URINE TEST NEGATIVE (NEGATIVE); Hyaline Casts NONE SEEN /LPF (0-2); Ketones Negative (Negative); Leukocyte Esterase Negative (Negative); Nitrite Positive (Negative); Protein,Urine Dip Trace (Negative); Specific Gravity 1.025 (1.005-1.030); Urobilinogen 0.2 mg/dL (0.2)
[2024-07-04] MEDS ORDERED: ZOFRAN ODT 4 MG ONE (19:39)
[2024-07-04 19:40] LABS: Absolute Neutrophil Ct (ANC) 5.43 x10^3/uL (1.56-6.13); BASOPHIL % 0.6 % (0.1-1.2); Basophil (Absolute #) 0.06 x10^3/uL (0.01-0.08); Eosinophil % 2.2 % (0.7-5.8); Eosinophil (Absolute #) 0.21 x10^3/uL (0.04-0.36); Hematocrit 49.4 % (34.1-44.9); Hemoglobin 15.5 g/dL (11.2-15.7); IMMATURE GRAN # 0.02 x10^3u/L (0.001-0.031); IMMATURE GRAN % 0.2 % (0.001-0.429); Lymphocyte (Absolute #) 3.22 x10^3/uL (1.18-3.74); Lymphocytes % 34.1 % (19.3-51.7); Mean Cell Volume 88.4 fL (79.4-94.8); Mean Corpuscular Hemoglobin 27.7 pg (25.6-32.2); Mean Corpuscular Hgb Concent. 31.4 g/dL (32.2-35.5); Mean Platelet Volume 9.5 fL (9.4-12.3); Monocyte (Absolute #) 0.51 x10^3/uL (0.24-0.86); Monocytes % 5.4 % (4.7-12.5); Neutrophil % 57.5 % (34.0-71.1); Platelet Count 298 x10^3/uL (182-369); Red Blood Count 5.59 x10^6/uL (3.93-5.22); Red Cell Distribution Width 15.6 % (11.7-14.4); White Blood Count 9.5 x10^3/uL (3.98-10.04)
[2024-07-04] MEDS: ZOFRAN ODT 4 MG PO ONE (19:40)
--- NOTE | 2024-07-04 19:40 | XRAY ---
CLINICAL HISTORY: Epigastric pain; hematemesis COMPARISON: Comparison is made with the previous CT study dated 02/07/2023. TECHNIQUE: Non-contrast CT of the abdomen and pelvis was performed, with the following protocol: axial images, and reconstructed coronal and sagittal images. No intravenous contrast was administered. One of the following dose reduction techniques was utilized for this exam: Automated exposure control, adjustment of the mA and/or kV according to patient size, and use of iterative reconstruction. FINDINGS: Abdomen: Liver: Normal in size, shape, and density. No focal lesions, cysts, or masses were identified. Gallbladder and Biliary System: The gallbladder is normal in size and shape. No wall thickening, pericholecystic fluid, or gallstones were identified. Pancreas: Pancreatic head, body, and tail are visualized and appear normal in size and density. No pancreatic masses or calcifications were noted. Spleen: Normal in size, shape, and density. No splenic lesions or masses were identified. Stable 3 mm calcified focus, likely old granuloma. Kidneys and Adrenal Glands: Both kidneys are normal in size, shape, and position. Cortical thickness is within normal limits. No renal calculi or hydronephrosis. Adrenal glands are unremarkable. Appendix: The appendix is normal in size without jorden appendiceal fat stranding and without an appendicolith. No evidence of appendiceal abscess or perforation. Pelvis: Urinary Bladder: Normal in contour and wall thickness. No intraluminal lesions. Status post hysterectomy. Peritoneal and Retroperitoneal Structures: No free fluid or abnormal fluid collections were identified within the abdomen or pelvis. No lymphadenopathy was noted. Hernial mesh repair sutures are seen with no recurrence. Bowel: The visualized bowel loops are normal in caliber and appearance. No evidence of bowel obstruction or wall thickening. Bones and Soft Tissues: Pelvic bones and soft tissues are unremarkable. No fractures or abnormal masses were identified. Lumbar spine scoliosis with convexity towards left side. Teague angle measures 14.5. Block vertebra of L4 and L5. Cuts through lung base show redemonstration of lingular calcified nodule measuring 6 mm, likely old granuloma. IMPRESSION: 1. Overall, non-contrast CT abdomen and pelvis demonstrate no interval changes compared with the CT study dated 02/07/2023. 2. Clinical correlation is recommended for further evaluation of epigastric pain and hematemesis. 3. Hernial mesh repair sutures are seen with no recurrence. 4. Lumbar spine scoliosis with convexity towards left side. Teague angle measures 14.5. Block vertebra of L4 and L5. 5. The uterus is missing, in keeping with previous hysterectomy. Electronically Signed by: Juan Pablo Hutchinson MD. (07/04/2024 19:35:11 EST)
[2024-07-04] MEDS: Levofloxacin 500 MG Tablet PO ONE (19:41)
[2024-07-04] MEDS ORDERED: Levofloxacin 500 MG Tablet ONE (19:41)
[2024-07-04 19:53] LABS: ALBUMIN 4.9 g/dL (3.5-5.0); ANION GAP 14.4 MEQ/L (5-15); BILIRUBIN,TOTAL 0.8 mg/dL (0.2-1.3); Calcium 9.6 mg/dL (8.4-10.2); Creatinine 1 0.76 mg/dL (0.52-1.04); EST GLOMERULAR FILTRATION RATE 99.7 ML/MIN; Potassium 3.4 mmol/L (3.5-5.1); Total Protein 8.2 g/dL (6.3-8.2)
[2024-07-04 20:14] VITALS: RESP 18
[2024-07-04 20:42] VITALS: BP 132/93; PULSE 84; O2SAT 99
== END 2024-07-04 20:44 | disposition home or self-care (01) ==
LOC: ED 15:21
DX: R10.13 Epigastric pain (principal); R11.2 Nausea with vomiting, unspecified; E11.9 Type 2 diabetes mellitus without complications; Z79.85 Long-term (current) use of injectable non-insulin antidiabetic drugs; Z79.899 Other long term (current) drug therapy
CPT/HCPCS: 36415; 74176; 80053; 81001; 81025; 82150; 83690; 85025; 87086; 99283; 99284; Q0162; A9270-GY